=== PATIENT | male | born 1950 | race African-American/Black ===

== ENCOUNTER 2017-10-20 14:25 | Emergency (ER) | payer OTHER ==
[2017-10-20 15:19] LABS: #Basophils 0.1 thou/uL (0.0-0.2); #Eosinphils 0.7 thou/uL (0.0-0.7); #Monocytes 0.3 thou/uL (0.11-0.59); #Neutrophils 4.5 thou/uL (1.40-6.50); %Basophils 0.9 % (0.0-1.0); %Lymphocytes 26.5 % (21.0-51.0); %Monocytes 3.6 % (0.0-10.0); Hemoglobin 15.2 g/dL (14.0-18.0); Mean Platelet Volume 6.9 fL (7.4-10.4); Platelet Count 253 thou/uL (130-400); RBC Distribution Width 13.4 % (11.5-14.5); Red Blood Cell (RBC) Count 4.89 mill/uL (4.70-6.10); White Blood Cell (WBC) Count 7.5 thou/uL (4.8-10.8)
[2017-10-20 15:43] LABS: ALT (SGPT) 12 U/L (8-55); AST (SGOT) 15 U/L (5-34); Albumin 4.1 g/dL (3.4-4.8); Alkaline Phosphatase 89 U/L (40-150); Anion Gap 13 mmol/L (10-20); BUN (Urea Nitrogen) 9 mg/dL (8.4-25.7); Bilirubin, Total 0.4 mg/dL (0.2-1.2); Calc. Creatinine Clearance 0 mL/min (70-130); Calcium 9.6 mg/dL (7.8-10.44); Carbon Dioxide 31 mmol/L (23-31); Chloride 94 mmol/L (98-107); Estimated GFR-MDRD Greater than 90; Globulin 4.3 g/dL (2.4-3.5); Glucose 218 mg/dL (80-115); Potassium 3.7 mmol/L (3.5-5.1); Protein, Total 8.4 g/dL (5.8-8.1); Sodium 134 mmol/L (136-145)
--- NOTE | 2017-10-20 17:17 | CT ---
ABDOMEN CT WITHOUT CONTRAST PELVIC CT WITHOUT CONTRAST: History: Right flank pain and congestion x two days. Comparison: None. Technique: Abdomen and pelvic CT are performed without IV or oral contrast. Coronal reformatted image s are submitted for interpretation. FINDINGS: ABDOMEN CT: Lung bases are clear. Heart size is normal. No significant pericardial fluid. Descending thoracic aor ta and abdominal aorta have overall normal caliber. No periaortic fat stranding. Limited evaluation of the solid organs due to lack of IV contrast. No solid organ abnormality. Gallbladder is unremarkable. Symmetric attenuation of the psoas muscles. No gastrohepatic, retrocrural or periportal lymphadenopathy. No evidence of lymphadenopathy, free air or free fluid. Limited evaluation due to the alimentary canal due to lack of oral contrast. No bowel obstruction. Il eocecal junction is normal. Normal caliber appendix. Fecal material in a nondependent, nondilated col on. Simple cyst emanating from the right renal cortex measuring 2.4 cm. Bilaterally, no hydronephrosis or significant periaortic fat stranding. Nonobstructing calcifications in the upper pole of the right k idney. Bilateral ureters have normal caliber. No hydroureter, periureteral fat stranding or ureteroli thiasis. PELVIC CT: No mass, lymphadenopathy, free air or free fluid. Urinary bladder is unremarkable. No lytic or blastic lesions in the osseous structures. There are degenerative changes of the lumbosac ral junction. IMPRESSION: 1. Punctate nonobstructing calcifications in the right renal pelvis. POS: [facility]
[2017-10-20 17:52] LABS: Bilirubin Negative (Negative); Blood, Urine Moderate (Negative); Clarity CLEAR (Clear); Glucose, Urine (Dipstick) Negative (Negative); Leukocyte Small (Negative); Nitrite Negative (Negative); Protein, Urine (Dipstick) Negative (Neg-Trace); Specific Gravity, Urine 1.006 (1.002-1.036); pH, Urine 6.5 (5.0-9.0)
[2017-10-20 17:53] LABS: Pathc Cast-AUWi Flag 0.67 (0-2.49)
--- NOTE | 2017-10-20 17:56 | RAD ---
PORTABLE UPRIGHT FRONTAL CHEST RADIOGRAPH: Date: 10-20-17 Comparison: None. History: Right flank pain, congestion. FINDINGS: Bilateral calcified pulmonary nodules noted. Calcified mass in subcarinal region noted. Findings are consistent with prior granulomatous disease. Patient is rotated to the left. No pneumothorax, pleural fluid, focal consolidation, or alveolar edema. IMPRESSION: No focal consolidation or alveolar edema. POS: [facility]
[2017-10-20 18:29] LABS: Bacteria/HPF None Seen HPF (None Seen); Hyaline Casts/LPF NONE SEEN LPF (0-3 Hyaline); RBC/HPF 0-3 HPF (0-3); Renal Epithelial None Seen HPF (0-3); Squamous Epithelial 0-3 HPF (0-3); Transitional Epithelial NONE SEEN HPF (0-3); WBC/HPF 0-3 HPF (0-3)
== END 2017-10-20 19:02 | disposition home or self-care (01) ==
LOC: ERS 14:25
DX: M54.5 Low back pain (principal); R31.29 Other microscopic hematuria; E11.9 Type 2 diabetes mellitus without complications; E78.5 Hyperlipidemia, unspecified; I10 Essential (primary) hypertension; F20.9 Schizophrenia, unspecified; F17.210 Nicotine dependence, cigarettes, uncomplicated; Z86.73 Personal history of transient ischemic attack (TIA), and cerebral infarction without residual deficits
CPT/HCPCS: 36415; 71045; 74176; 80053; 81003; 81015; 85025; 87086; 96372; J2270

== ENCOUNTER 2018-03-06 09:29 | Outpatient (CLI) | payer MEDICARE, MEDICAID ==
[2018-03-06 10:14] LABS: Estimated GFR-MDRD - POC Greater than 90
--- NOTE | 2018-03-06 11:04 | CT ---
CT CHEST WITH IV CONTRAST: History: Cough. Infiltrate. FINDINGS: Calcified granulomata throughout each lung and calcified lymph nodes at the mediastinum are consisten t with healed granulomatous disease. At the posteromedial aspect of the superior segment right lower lobe, a subpleural noncalcified well circumscribed homogeneous nodule is 1.1 cm. There is minimal par enchymal opacity in the dependent portion right upper lobe. No lobar consolidation. Mild scarring at each lung base. No pleural fluid or pneumothorax. Calcification within the arterial structures. Degen erative changes thoracic spine. IMPRESSION: 1. Minimal parenchymal opacity dependent portion right upper lobe without lobar consolidation. This h as the appearance of a chronic process. 2. In addition to extensive calcified granulomata, there is a 1.1 cm noncalcified subpleural nodule r ight lower lobe. Please consider follow up CT in 6-9 months to evaluate for stability. 3. Atherosclerosis. POS: [facility]
== END 2018-03-06 09:30 | disposition home or self-care (01) ==
LOC: CT 09:29
PROVIDERS: ATTEND Internal Medicine
DX: R91.8 Other nonspecific abnormal finding of lung field (principal); R05 Cough; R91.1 Solitary pulmonary nodule
CPT/HCPCS: 71260; 82565

== ENCOUNTER 2018-05-11 03:14 | Emergency (ER) | payer MEDICARE, MEDICAID ==
[2018-05-11 04:01] LABS: #Eosinphils 0.1 thou/uL (0.0-0.7); #Lymphocytes 1.7 thou/uL (1.20-3.40); #Monocytes 0.4 thou/uL (0.11-0.59); #Neutrophils 7.7 thou/uL (1.40-6.50); %Basophils 0.3 % (0.0-1.0); %Eosinophils 1.4 % (0.0-10.0); %Lymphocytes 17.4 % (21.0-51.0); %Monocytes 3.8 % (0.0-10.0); %Neutrophils 77.1 % (42.0-75.0); Hemoglobin 11.5 g/dL (14.0-18.0); Mean Corpuscular HGB CONC 33.6 g/dL (32.0-36.0); Mean Corpuscular Hemoglobin 30.3 pg (27.0-31.0); Mean Corpuscular Volume 90.3 fL (78.0-98.0); Mean Platelet Volume 6.8 fL (7.4-10.4); Platelet Count 334 thou/uL (130-400); RBC Distribution Width 14.1 % (11.5-14.5)
[2018-05-11 04:19] LABS: ALT (SGPT) 101 U/L (8-55); AST (SGOT) 30 U/L (5-34); Albumin 2.9 g/dL (3.4-4.8); Alkaline Phosphatase 111 U/L (40-150); Anion Gap 15 mmol/L (10-20); BUN (Urea Nitrogen) 12 mg/dL (8.4-25.7); Bilirubin, Total 0.6 mg/dL (0.2-1.2); CK (CPK) 17 U/L (30-200); Calc. Creatinine Clearance 0 mL/min (70-130); Calcium 8.7 mg/dL (7.8-10.44); Carbon Dioxide 24 mmol/L (23-31); Chloride 99 mmol/L (98-107); Estimated GFR-MDRD Greater than 90; Globulin 4.3 g/dL (2.4-3.5); Glucose 62 mg/dL (80-115); Protein, Total 7.2 g/dL (5.8-8.1); Sodium 135 mmol/L (136-145)
[2018-05-11 04:24] LABS: Troponin I Less than 0.010 ng/mL (< 0.028)
[2018-05-11 06:35] LABS: Bilirubin Negative (Negative); Blood, Urine Negative (Negative); Clarity CLOUDY (Clear); Glucose, Urine (Dipstick) Negative (Negative); Leukocyte Small (Negative); Nitrite Negative (Negative); Protein, Urine (Dipstick) Trace mg/dL (Neg-Trace); Specific Gravity, Urine 1.016 (1.002-1.036); Urobilinogen 0.2 mg/dL (0.2-1.0)
[2018-05-11 06:38] LABS: Hyaline Casts/LPF 4-6 HYALINE CAST LPF (0-3 Hyaline); Pathc Cast-AUWi Flag 0.72 (0-2.49); Squamous Epithelial 0-3 HPF (0-3); Yeast-AUWi Flag 20.9 (0-25.0)
[2018-05-11 07:16] LABS: Bacteria/HPF Rare-Few HPF (None Seen); RBC/HPF 0-3 HPF (0-3)
[2018-05-11 07:19] LABS: Yeast-All Forms 1+ HPF (None Seen)
[2018-05-11 07:20] LABS: Crystals/HPF 1+ AMORPH URATES HPF (Negative)
--- NOTE | 2018-05-11 07:43 | RAD ---
CHEST 1 VIEW: COMPARISON: 05/07/18. HISTORY: Altered mental status. FINDINGS: Portable upright chest demonstrates the patient with leftward rotation. Normal cardiac silhouette. The pulmonary vessels and hilum are normal. Costophrenic angles are clear. No masses or consolidati on. No pneumothorax or osseous abnormalities. Stable calcified lymph node in the mediastinum. IMPRESSION: No significant interval change. POS: [facility]
[2018-05-11] MEDS ORDERED: Nitrofurantoin Monohyd/M-Cryst 100 MG CAP PO SCH (09:00)
--- NOTE | 2018-05-11 09:22 | CT ---
PRELIMINARY REPORT/[facility]/EMERGENTY AFTER-HOURS PROCEDURE CT Head Without Intravenous Contrast EXAM DATE/TIME: 05/11/2018 4:44 AM CLINICAL HISTORY: 67 years old, male; Signs and symptoms; Altered mental status/memory loss; Confusion or disorientatio n; Patient HX: 67 yo m from [facility] presents to ed with mental status changes/lethargy . Ems reports PT was woken up at his [facility] around 2 am to get vitals and the staff reported th at PT "seemed a bit off. " PT is two days post abdominal surgery and currently has a wound vac in place. PT denies abd pain, denies chest pain, denies back pain, denies any pain or complaints. TECHNIQUE: Axial computed tomography images of the head/brain without intravenous contrast. COMPARISON: No relevant prior studies available. FINDINGS: Brain: Left-sided encephalomalacia/gliosis. No brain edema. No intracranial hemorrhage. Ventricles: Normal. No ventriculomegaly. Bones/joints: Normal. No acute fracture. Sinuses: Normal as visualized. No acute sinusitis. Mastoid air cells: Normal as visualized. No mastoid effusion. Soft tissues: Normal. Other findings: Generalized volume loss. IMPRESSION: No acute brain findings. Thank you for allowing us to participate in the care of your patient. Dictated and Authenticated by: Kvng Soares MD 05/11/2018 4:53 AM Central Time ([place] & [place]) FINAL REPORT NONCONTRAST HEAD CT: Date: 05/11/18 HISTORY: Altered mental status. COMPARISON: None. FINDINGS/IMPRESSION: This report is in agreement with the preliminary report by Bib[facility]. No acute intracranial process. Burgess es in left cerebrum compatible with previous insult. There is resultant encephalomalacia and probable gliosis. There is ex vacuo dilatation of the frontal horn and body of left lateral ventricle. POS: [facility]
== END 2018-05-11 09:00 | disposition home or self-care (01) ==
LOC: ERS 03:14
DX: R41.82 Altered mental status, unspecified (principal); E11.9 Type 2 diabetes mellitus without complications; E78.5 Hyperlipidemia, unspecified; I10 Essential (primary) hypertension; Z86.73 Personal history of transient ischemic attack (TIA), and cerebral infarction without residual deficits; F20.9 Schizophrenia, unspecified
CPT/HCPCS: 36415; 51701; 70450; 71045; 80053; 81003; 81015; 82553; 84484; 85025; 87086; 93005; 94760

== ENCOUNTER 2018-05-25 06:34 | Inpatient (IN) | payer MEDICARE, MEDICAID ==
[2018-05-25 07:16] LABS: #Eosinphils 0.1 thou/uL (0.0-0.7); #Lymphocytes 1.6 thou/uL (1.20-3.40); #Monocytes 0.8 thou/uL (0.11-0.59); #Neutrophils 4.5 thou/uL (1.40-6.50); %Basophils 0.1 % (0.0-1.0); %Eosinophils 1.5 % (0.0-10.0); %Lymphocytes 22.6 % (21.0-51.0); %Monocytes 11.5 % (0.0-10.0); %Neutrophils 64.3 % (42.0-75.0); Hemoglobin 10.2 g/dL (14.0-18.0); Mean Corpuscular HGB CONC 32.2 g/dL (32.0-36.0); Mean Corpuscular Hemoglobin 28.7 pg (27.0-31.0); Mean Corpuscular Volume 89.1 fL (78.0-98.0); Mean Platelet Volume 6.6 fL (7.4-10.4); Platelet Count 326 thou/uL (130-400); RBC Distribution Width 13.4 % (11.5-14.5); Red Blood Cell (RBC) Count 3.57 mill/uL (4.70-6.10); White Blood Cell (WBC) Count 6.9 thou/uL (4.8-10.8)
[2018-05-25] MEDS ORDERED: Meropenem 1 GM in Sodium Chloride 0.9% 100 ML IVPB SCH ×2 (07:30→14:00)
[2018-05-25 07:38] LABS: ALT (SGPT) 9 U/L (8-55); AST (SGOT) 14 U/L (5-34); Albumin 2.8 g/dL (3.4-4.8); Alkaline Phosphatase 67 U/L (40-150); Anion Gap 16 mmol/L (10-20); BUN (Urea Nitrogen) 13 mg/dL (8.4-25.7); Bilirubin, Total 0.8 mg/dL (0.2-1.2); Calc. Creatinine Clearance 0 mL/min (70-130); Calcium 8.4 mg/dL (7.8-10.44); Carbon Dioxide 29 mmol/L (23-31); Chloride 92 mmol/L (98-107); Estimated GFR-MDRD Greater than 90; Globulin 4.1 g/dL (2.4-3.5); Glucose 136 mg/dL (80-115); Protein, Total 6.9 g/dL (5.8-8.1); Sodium 134 mmol/L (136-145)
[2018-05-25 07:42] LABS: Potassium 2.8 mmol/L (3.5-5.1)
[2018-05-25] MEDS ORDERED: MEROPENEM 1 GM/50 ML 1 GM in Premix Bag 1 BAG IVPB SCH (07:45)
--- NOTE | 2018-05-25 08:22 | RAD ---
AP VIEW OF THE CHEST: INDICATION: History of chest pain. COMPARISON: Prior exam dated 05/11/18. FINDINGS: Lungs are clear. Cardiomediastinal silhouette is slightly difficult to evaluate due to rotation. No definite acute osseous abnormality is evident. There is multilevel spondylosis of the thoracic spin e. There is a calcified lymph node within the mediastinum. IMPRESSION: No definite acute abnormality. Chronic changes appear similar to the prior study. POS: [facility]
[2018-05-25 10:44] LABS: Bilirubin Small (Negative); Blood, Urine Negative (Negative); Clarity CLEAR (Clear); Glucose, Urine (Dipstick) Negative (Negative); Leukocyte Negative (Negative); Nitrite Negative (Negative); Protein, Urine (Dipstick) Negative (Neg-Trace); Specific Gravity, Urine 1.034 (1.002-1.036); pH, Urine 5.5 (5.0-9.0)
--- NOTE | 2018-05-25 11:05 | CT ---
ABDOMEN AND PELVIC CT SCAN WITH IV CONTRAST: Comparison: 05-04-18 FINDINGS: There is persistent pleural and parenchymal opacity changes in the right lung base. There is resoluti on of the previously noted free intraperitoneal fluid when compared to the prior study. There is some persistent abnormally dilated small bowel loops, particularly in the upper mid abdomen anteriorly wi th some scattered air fluid levels. No oral contrast was given which significantly lowers the sensiti vity of this study in evaluating the large and small bowel. The liver and gallbladder, pancreas, sple en, and adrenal glands are unremarkable. No renal hydronephrosis. Small stable right renal cyst. Post -operative changes in the midline above the level of the umbilicus with some extraluminal gas associa dk with an anterior abdominal wall wound. The distal ileum does not appear to be dilated. There does , however, appear to be some abnormal wall thickening involving the upper rectum and rectal sigmoid p ortion of the colon which was not seen on the prior study raising concern for some type of nonspecifi c colitis. No evidence for a drainable abscess. IMPRESSION: 1. Interval development of abnormal wall thickening involving the upper rectum and rectal sigmoid por tion of the colon since prior study, evidence for nonspecific colitis. Resolution of the previously n oted free intraperitoneal fluid. Persistently abnormally dilated proximal small bowel loops with some air and fluid levels with nondilated distal small bowel. Persistent open wound in the anterior abdom en above the level of the umbilicus. Persistent pleural based parenchymal changes in the right lower lobe of the lung. No evidence for drainable abscess. Continued short term follow up. Abnormally dilat ed proximal small bowel loops with nondilated distal small bowel but showing little change from the p rior study. POS: [facility]
[2018-05-25] MEDS ORDERED: ISOVUE-370 76%-LOCM 1 ML ONE (12:21)
[2018-05-25] MEDS ORDERED: Dextrose 5% in Water 1,000 ML IV PRN (12:42)
[2018-05-25] MEDS ORDERED: Guaifenesin DM 100-10/5 ML UDCUP PO PRN (12:42)
[2018-05-25] MEDS ORDERED: Dextrose 50% Abboject 50 ML SYRINGE SLOW IVP PRN (12:42)
[2018-05-25] MEDS ORDERED: Acetaminophen 325 MG TAB PO PRN (12:42)
[2018-05-25] MEDS ORDERED: HumaLOG 300 UNITS/3 ML VIAL SC PRN ×2 (12:42)
[2018-05-25] MEDS ORDERED: Diabetic Tussin 200 MG/10 ML UDCUP PO PRN (15:00)
[2018-05-25] MEDS: Gabapentin 300 MG CAP PO SCH ×2 (15:41→20:35)
[2018-05-25] MEDS: Sodium Chloride 0.9% 1,000 ML IV SCH (15:41)
[2018-05-25] MEDS: Potassium Chloride 20 MEQ TAB PO SCH ×2 (16:14→20:37)
[2018-05-25] MEDS: Cilostazol 100 MG TAB PO SCH (18:02)
--- NOTE | 2018-05-25 19:27 | HP ---
HISTORY OF PRESENT ILLNESS: Jeremiah Mcclure is a 67-year-old black male longterm patient, previous stroke with right hemiparesis, nonambulatory, bedridden. The patient was recently hospitalized 04/02 to 05/08/2018 for what was thought to be aspiration pneumonia and an ileus. There is no clini gulshan history available and physical exam did not reveal any scars on his abdominal wall. The patient initially had a small bowel follow through during the hospitalization suggesting ileus and that the c ontrast arrived at the colon delayed fashion; however, after about 10 days of NG tube suction and fozia lure to improve, small bowel follow through was repeated and there was no progress thus he was taken to the operating room on 05/01/2018 for laparotomy, adhesiolysis after unsuccessful laparoscopy. He finally convalesced, tolerated his diet and was discharged back to the longterm. Patient present s to the emergency room without reliable history. There was noted be some food residue on his clothe s and his womack, but this is uncertain whether this was a vomitus or just him spilling food during ea ting. There is no history of last bowel movement, no history of last flatus and patient is not very well communicative. I do ask him if he does not have any abdominal pain, he says no. He cannot tell me when his last bowel movement or flatus was. The patient underwent a chest x-ray that was fairly unremarkable. CAT scan of abdomen and pelvis reveals some thickening of the rectum and left colon an d small segments of dilated small bowel of uncertain significance. There was gas throughout the colo n. His CBC is normal with a white count of 6.9, hemoglobin 10.2. Basic metabolic profile normal exc ept for potassium of 2.8, sodium 134. The patient's admitting report was that he was slightly tachycardic and hypotensive. His blood press ures reported to be in the 80s and 90s. When seen in the emergency room, his blood pressure is 104/7 0, heart rate 95-100. During his last hospitalization, the patient is noted to be a DNR. Resident at [facility] and he was not out of bed the whole time he is in the hospital. He is a complete lift. PAST MEDICAL HISTORY: Stroke with right hemiparesis, COPD, diabetes mellitus type 2, dyslipidemia, h ypertension, degenerative disk disease, recent bowel obstruction on hospitalization, recent pneumonia . PAST SURGICAL HISTORY: Recent operation three weeks ago as noted above. PAST PSYCHIATRIC HISTORY: Schizophrenia. SOCIAL HISTORY: History of tobacco abuse, history of recreational drug use. PHYSICAL EXAMINATION: VITAL SIGNS: Heart rate 94, blood pressure 105/74. HEENT: Unremarkable. LUNGS: Clear to auscultation, no wheezing. CARDIAC: Regular rate and rhythm. ABDOMEN: Soft, nondistended, nontender, midline wound granulating healthy. No signs of infection. EXTREMITIES: Unremarkable. ASSESSMENT AND PLAN: Fever workup. He is at risk of a urinary tract infection due to his urinary pr oblems. X-ray does not reveal an apparent pneumonia. He does not have a history of emesis or eating problems. Agree that he should be on full liquids and advance diet as tolerated. We will obtain ab dominal x-rays tomorrow. There is no surgical problem evident at this time. We will follow him with you.
[2018-05-25] MEDS: Docusate 100 MG CAP PO SCH (20:29)
[2018-05-25] MEDS: Famotidine 20 MG TAB PO SCH (20:35)
[2018-05-25] MEDS: Simvastatin 40 MG TAB PO SCH (20:35)
[2018-05-25] MEDS: Metoprolol Tartrate 25 MG TAB PO SCH (20:35)
[2018-05-25] MEDS ORDERED: Metoprolol Tartrate 50 MG TAB PO SCH (21:00)
--- NOTE | 2018-05-25 22:00 | HP ---
REASON FOR ADMISSION: Sepsis, colitis. HISTORY OF PRESENT ILLNESS: Patient was sent from [facility] for low blood pressure and tachycardia. He had blood pressures of 90/60 and heart rate was 140. The patient also had a temperature and was more lethargic. On arrival here, he was given a liter of bolus along with vancomycin and meropenem. He has a wound VAC to his abdomen from his recent surgery done. The patient is nonverbal with history of prior stroke and right hemiplegia. He was discharged on the 7th after having had surgery for mechanical small-bowel obstruction. PAST MEDICAL AND SURGICAL HISTORY: History of recent small-bowel obstruction with surgery for the same with peritonitis and placement of wound VAC, aspiration pneumonia, history of cerebrovascular accident with right hemiplegia , COPD, hypertension, paroxysmal atrial fibrillation, dysphagia, dyslipidemia, lumbar degenerative disk disease, osteoarthritis, schizophrenia, poor functional status. CURRENT MEDICATIONS: Gabapentin 600 mg p.o. daily, MiraLax daily, Mucinex p.r.n., cilostazol 100 mg twice daily, bupropion extended release 150 mg daily, aspirin 81 mg daily, hydrochlorothiazide 25 mg daily, Humulin 70/30 of 20 units subcu twice daily, lactulose 20 grams daily, Lopressor 75 mg twice daily, Risperdal 4 mg daily, and simvastatin 40 mg p.o. q.p.m. ALLERGIES: LISINOPRIL, METFORMIN, and TRIAMCINOLONE. PERSONAL HISTORY: Does not abuse alcohol or drugs. He is currently a resident of [facility]. He was a prior smoker per prior records. FAMILY HISTORY: There is history of heart disease in mom per prior records. CODE STATUS: The patient is DNR. I have confirmed this with his sister and power of station manager, Ms. Worley. The number to reach her is [phone]. REVIEW OF SYSTEM: Cannot be obtained as patient is nonverbal. PHYSICAL EXAMINATION: GENERAL: The patient is a 67-year-old male, who is currently not in any acute distress. VITAL SIGNS: Blood pressure on arrival was 96/60, currently 110/64, pulse 100 per minute, respiratory rate is 18 per minute, temperature 99.3 degrees Fahrenheit, saturating 92% on room air. NECK: Supple, no elevated JVD. HEENT: Eyes: Extraocular muscles intact. Pupils reacting to light. Oral cavity mucous membranes are dry. No exudates or congestion. CARDIOVASCULAR: S1 and S2 heard. Regular rhythm. RESPIRATORY: Air entry 1+ bilateral. Scattered rhonchi plus. ABDOMEN: Soft, bowel sounds heard. There are 2 wounds with wound VAC with history of recent surgery for bowel obstruction, also has abdominal wall edema. EXTREMITIES: There is no peripheral edema or calf tenderness. VASCULAR: Peripheral pulses 1+ bilateral, no ischemic ulcerations or gangrene. CENTRAL NERVOUS SYSTEM: The patient has chronic right hemiplegia with aphasia and dysphagia. No new focal deficits noted. PSYCHIATRIC: Cannot be assessed as patient is currently nonverbal. No obvious hallucinations or delusions were noted. LABORATORY AND X-RAY FINDINGS: White count of 6.9, H&H 10 and 31, platelet count 326, MCV is 89 with 64% neutrophils. Potassium 2.8, serum bicarbonate 29 , BUN 13, creatinine 0.7, glucose 136. Lactic acid 0.8. Liver enzymes within normal limits. Albumin is 2.8. Chest x-ray done shows no acute abnormalities. CT of the abdomen and pelvis with IV contrast done shows abnormal wall thickening involving upper rectum and rectosigmoid portion of the colon since prior study, evidence for nonspecific colitis is seen. There is a resolution of the previous free intraperitoneal fluid at present. There is also persistently abnormally dilated proximal small bowel loops with some air fluid levels with nondilated distal small ball persistent open wound in the anterior abdomen above the level of the umbilicus. No evidence for drainable abscess seen. EKG done shows sinus tachycardia at 106 beats per minute. There is poor R-wave progression. There is also ST depression seen in lead II, III, and aVF. There is questionable Q-waves seen in V1 and V2. CLINICAL IMPRESSION AND PLAN: The patient will be admitted to medical floor for possible colitis. He has had recent abdominal surgery for small-bowel obstruction and still has a wound VAC x2 to the abdominal wounds. I have discussed his current findings with Dr. Melissa, who is here in the emergency room. We will keep him on full liquid diet. We will also obtain stool studies including Clostridium difficile. He will be on meropenem for now. We will continue Zocor, Risperdal, lactulose, DuoNebs, hydrochlorothiazide, Neurontin, Pletal, Wellbutrin, and aspirin as before. Metoprolol dose will be reduced to 25 mg in view of initial hypotension that the patient came in with. I will likely hold his hydrochlorothiazide as well. Patient's overall prognosis is poor to guarded at present. His functional status is very poor. Have given complete updates to patient's sister, Ms. Worley over the phone. We will involve Wound Care as well for the wounds on the abdominal wall. CARINA
[2018-05-25] MEDS: MEROPENEM 1 GM/50 ML 1 GM in Premix Bag 1 BAG IVPB SCH (22:46)
[2018-05-26] MEDS: Sodium Chloride 0.9% 1,000 ML IV SCH ×3 (04:59→21:21)
[2018-05-26] MEDS: Potassium Chloride 20 MEQ TAB PO SCH ×6 (05:00→22:53)
[2018-05-26 05:02] LABS: #Eosinphils 0.1 thou/uL (0.0-0.7); #Monocytes 0.6 thou/uL (0.11-0.59); #Neutrophils 3.4 thou/uL (1.40-6.50); %Basophils 0.3 % (0.0-1.0); %Eosinophils 2.5 % (0.0-10.0); %Lymphocytes 20.2 % (21.0-51.0); %Monocytes 10.8 % (0.0-10.0); %Neutrophils 66.3 % (42.0-75.0); Hemoglobin 10.4 g/dL (14.0-18.0); Mean Corpuscular HGB CONC 30.9 g/dL (32.0-36.0); Mean Corpuscular Hemoglobin 27.6 pg (27.0-31.0); Mean Corpuscular Volume 89.3 fL (78.0-98.0); Mean Platelet Volume 6.2 fL (7.4-10.4); Platelet Count 305 thou/uL (130-400); RBC Distribution Width 13.5 % (11.5-14.5); Red Blood Cell (RBC) Count 3.77 mill/uL (4.70-6.10); White Blood Cell (WBC) Count 5.1 thou/uL (4.8-10.8)
[2018-05-26 05:14] LABS: Anion Gap 12 mmol/L (10-20); BUN (Urea Nitrogen) 8 mg/dL (8.4-25.7); Calc. Creatinine Clearance 134 mL/min (70-130); Calcium 8.7 mg/dL (7.8-10.44); Carbon Dioxide 31 mmol/L (23-31); Chloride 97 mmol/L (98-107); Estimated GFR-MDRD Greater than 90; Glucose 125 mg/dL (80-115); Sodium 137 mmol/L (136-145)
[2018-05-26 05:17] LABS: Potassium 2.6 mmol/L (3.5-5.1)
[2018-05-26] MEDS: MEROPENEM 1 GM/50 ML 1 GM in Premix Bag 1 BAG IVPB SCH (06:33)
[2018-05-26] MEDS ORDERED: Famotidine 20 MG TAB PO SCH (09:00)
[2018-05-26] MEDS ORDERED: Hydrochlorothiazide 25 MG TAB PO SCH (09:00)
[2018-05-26] MEDS: Cilostazol 100 MG TAB PO SCH ×2 (10:27→16:04)
[2018-05-26] MEDS: Gabapentin 300 MG CAP PO SCH ×4 (10:28→22:56)
[2018-05-26] MEDS: risperiDONE 1 MG TAB PO SCH (10:28)
[2018-05-26] MEDS: Famotidine 20 MG TAB PO SCH ×3 (10:28→22:56)
[2018-05-26] MEDS: Bupropion 150 MG XL TAB PO SCH (10:29)
[2018-05-26] MEDS: Docusate 100 MG CAP PO SCH ×2 (10:29→21:11)
[2018-05-26] MEDS: Senokot S 8.6-50 MG TAB PO SCH (10:30)
[2018-05-26] MEDS: Vancomycin HCl 25 MG/ML Oral PO SCH ×5 (10:35→22:57)
--- NOTE | 2018-05-26 10:36 | RAD ---
CHEST ONE VIEW: ABDOMEN TWO VIEWS: HISTORY: A 67-year-old male with follow-up possible sepsis, congestion, fever, and tachycardia. COMPARISON: Abdomen and pelvis CT scan from 05/25/2018. FINDINGS: CHEST: There is considerable rotation of the chest to the right with old granulomatous disease and m inimal chronic linear and interstitial changes, as well as atherosclerosis of the aorta. No evidence for free intraperitoneal air. ABDOMEN: There is some scattered gas and fecal material in the colon, as well as some scattered gas in a minimally dilated small bowel. No overt calculus. IMPRESSION: 1. Some gas and fecal material in the colon and some gas in minimally dilated small bowel, showing l ittle change, possibly slightly less gas-filled small bowel loops than when compared to the prior CT. 2. No significant acute intrathoracic disease. 3. No significant new process. POS: [facility]
[2018-05-26] MEDS: Enoxaparin Sodium 40 MG/0.4 ML SYRINGE SC SCH (10:57)
--- NOTE | 2018-05-26 12:15 | PDOC.PN ---
- Subjective Encounter Start Date: 05/26/18 Encounter Start Time: 12:00 Subjective: no complaints -: not in distress - Objective Resuscitation Status: Resuscitation Status DNR:Do Not Resuscitate MAR Reviewed: Yes Vital Signs & Weight: Vital Signs (12 hours) Temp Pulse Resp BP Pulse Ox 05/26/18 08:57 98.2 F 92 20 105/66 98 05/26/18 08:00 98 05/26/18 07:35 96 05/26/18 07:33 83 16 96 05/26/18 04:36 97.5 F L 83 16 110/66 97 05/26/18 00:26 98.2 F 87 16 120/75 95 Weight Weight 180 lb 0.119 oz I&O: 05/25/18 05/26/18 05/27/18 06:59 06:59 06:59 Intake Total 420 1040 Balance 420 1040 Result Diagrams: 05/26/18 04:08 05/26/18 04:08 Additional Labs: Accuchecks 05/26/18 05/25/18 05/25/18 04:40 20:07 16:57 POC Glucose 126 H 160 H 150 H Phys Exam - Physical Examination HEENT: PERRLA, sclera anicteric Neck: no JVD, supple Respiratory: no wheezing, no rales Cardiovascular: RRR, no significant murmur Gastrointestinal: soft, no distention, positive bowel sounds Musculoskeletal: no edema, pulses present right hemiplegia, aphasia, dysphagia Dx/Plan (1) Sepsis Code(s): A41.9 - SEPSIS, UNSPECIFIED ORGANISM Status: Acute Qualifiers: Sepsis type: sepsis due to unspecified organism Qualified Code(s): A41.9 - Sepsis, unspecified organism (2) C. difficile colitis Status: Acute (3) DM type 2 (diabetes mellitus, type 2) Status: Chronic Qualifiers: Diabetes mellitus corporate human resources manager insulin use: with corporate human resources manager use Diabetes mellitus complication status: with unspecified complications Qualified Code(s) : E11.8 - Type 2 diabetes mellitus with unspecified complications; Z79.4 - gift officer (current) use of insulin (4) Schizoaffective disorder Code(s): F25.9 - SCHIZOAFFECTIVE DISORDER, UNSPECIFIED Status: Chronic Qualifiers: Schizoaffective disorder type: unspecified Qualified Code(s): F25.9 - Schizoaffective disorder, unspecified (5) COPD (chronic obstructive pulmonary disease) Status: Chronic Qualifiers: COPD type: unspecified COPD Qualified Code(s): J44.9 - Chronic obstructive pulmonary disease, unspecified Comment: Stable. (6) HTN (hypertension) Code(s): I10 - ESSENTIAL (PRIMARY) HYPERTENSION Status: Chronic Qualifiers: Hypertension type: essential hypertension Qualified Code(s): I10 - Essential (primary) hypertension (7) History of CVA (cerebrovascular accident) Code(s): Z86.73 - PRSNL HX OF TIA (TIA), AND CEREB INFRC W/O RESID DEFICITS Status: Chronic Comment: with right hemiplegia, aphasia and dysphagia - Plan start vanc po for cdiff colitis -: dc meropenem -: continue aspirin, pletal, lopressor -: gentle iv hydration -: replace potassium * . Review of Systems - Medications/Allergies Allergies/Adverse Reactions: Allergies Allergy/AdvReac Type Severity Reaction Status Date / Time lisinopril Allergy Verified 04/22/18 10:12 metformin Allergy Verified 04/22/18 10:12 triamcinolone [From Kenalog] Allergy Verified 04/22/18 10:12 Medications: Current Medications Acetaminophen (Tylenol) 650 mg PO Q4H PRN PRN Reason: Headache/Fever or Pain Albuterol/Ipratropium (Duoneb) 3 ml NEB [id number] [facility] Last Admin: 05/26/18 07:33 Dose: 3 ml Aspirin (Aspirin Chewable) 81 mg PO DAILY [facility] Last Admin: 05/26/18 10:28 Dose: 81 mg Bupropion HCl (Wellbutrin Xl) 150 mg PO DAILY [facility] Last Admin: 05/26/18 10:29 Dose: 150 mg Cilostazol (Pletal) 100 mg PO BID-AC [facility] Last Admin: 05/26/18 10:27 Dose: 100 mg Dextrose/Water (Dextrose 50%) 25 gm SLOW IVP PRN PRN PRN Reason: Hypoglycemia Docusate Sodium (Colace) 100 mg PO BID [facility] Last Admin: 05/26/18 10:29 Dose: Not Given Enoxaparin Sodium (Lovenox) 40 mg SC 0900 [facility] Last Admin: 05/26/18 10:57 Dose: 40 mg Famotidine (Pepcid) 20 mg PO BID [facility] Last Admin: 05/26/18 10:28 Dose: 20 mg Gabapentin (Neurontin) 600 mg PO TID [facility] Last Admin: 05/26/18 10:28 Dose: 600 mg Glucagon (Glucagon) 1 mg IM PRN PRN PRN Reason: Hypoglycemia Guaifenesin (Robitussin Sf) 400 mg PO TID PRN PRN Reason: Cough Guaifenesin/Dextromethorphan (Robitussin Dm) 15 ml PO Q4H PRN PRN Reason: Cough Dextrose/Water (D5w) 1,000 mls @ 0 mls/hr IV .Q0M PRN PRN Reason: Hypoglycemia Sodium Chloride (Normal Saline 0.9%) 1,000 mls @ 70 mls/hr IV .[id number] [facility] Last Admin: 05/26/18 04:59 Dose: 1,000 mls Insulin Human Lispro (Humalog) 0 units SC .MODERATE SLIDING SC PRN PRN Reason: Moderate Correctional Scale Insulin Human Lispro (Humalog) 0 units SC .BEDTIME SLIDING SC PRN PRN Reason: Bedtime Correctional Scale Lactulose (Lactulose) 20 gm PO DAILY [facility] Last Admin: 05/26/18 10:29 Dose: Not Given Metoprolol Tartrate (Lopressor) 25 mg PO BID [facility] Last Admin: 05/25/18 20:35 Dose: 25 mg Potassium Chloride (K-Dur) 40 meq PO Q6H [facility] Stop: 05/28/18 03:01 Last Admin: 05/26/18 10:27 Dose: 40 meq Risperidone (Risperidone) 4 mg PO DAILY [facility] Last Admin: 05/26/18 10:28 Dose: 4 mg Senna/Docusate Sodium (Senokot S) 2 tab PO DAILY [facility] Last Admin: 05/26/18 10:30 Dose: Not Given Simvastatin (Zocor) 40 mg PO QPM [facility] Last Admin: 05/25/18 20:35 Dose: 40 mg Sodium Chloride (Flush - Normal Saline) 10 ml IVF Q12HR [facility] Last Admin: 05/26/18 10:35 Dose: Not Given Sodium Chloride (Flush - Normal Saline) 10 ml IVF PRN PRN PRN Reason: Saline Flush Vancomycin HCl (First Vancomycin) 125 mg PO QID [facility] Last Admin: 05/26/18 10:35 Dose: 125 mg
[2018-05-26] MEDS: Metoprolol Tartrate 25 MG TAB PO SCH ×2 (13:47→21:19)
--- NOTE | 2018-05-26 14:01 | PRG ---
DATE OF SERVICE: 05/26/2018 HISTORY OF PRESENT ILLNESS: Jeremiah Mcclure is doing fairly well today. Stool studies revealed Clostr idium difficile colitis. His abdominal wound is granulating healthy. Wound VAC has been used in the [facility]. Would continue wound VAC treatment here. The patient was discharged home on mechanical engineer al soft diet; however, in the [facility] he was taking pureed. Speech therapy evaluated him last h ospitalization and recommended the diet he was discharged home with, but somehow in the [facility] this was changed. The patient has been re-evaluated by Speech Therapy. His diet has been adjusted. He is tolerating his diet. He denies any abdominal pain. During the patient's last hospitalization he did not get out of bed. Nurses would not get him out of bed because he is a total lift. He is n onambulatory. At this point, the patient is doing well from surgical standpoint. Would continue wo und care with a wound VAC and follow up in my office in 2-3 weeks. I will see him as needed this hos pitalization. He is on Vancocin p.o. for his C. difficile colitis and hypokalemia is being replaced with potassium repletion.
[2018-05-26] MEDS: Simvastatin 40 MG TAB PO SCH (21:19)
[2018-05-26] MEDS ORDERED: Potassium Chloride 40 MEQ in Sodium Chloride 0.9% 250 ML 250 ML IVPB SCH (23:59)
[2018-05-27] MEDS: Potassium Chloride 20 MEQ TAB PO SCH (02:50)
[2018-05-27 05:54] LABS: #Eosinphils 0.1 thou/uL (0.0-0.7); #Lymphocytes 1.3 thou/uL (1.20-3.40); #Monocytes 0.6 thou/uL (0.11-0.59); #Neutrophils 2.9 thou/uL (1.40-6.50); %Basophils 0.5 % (0.0-1.0); %Eosinophils 1.9 % (0.0-10.0); %Lymphocytes 26.9 % (21.0-51.0); %Monocytes 12.2 % (0.0-10.0); %Neutrophils 58.4 % (42.0-75.0); Hemoglobin 9.8 g/dL (14.0-18.0); Mean Corpuscular HGB CONC 31.7 g/dL (32.0-36.0); Mean Corpuscular Hemoglobin 28.8 pg (27.0-31.0); Mean Corpuscular Volume 90.8 fL (78.0-98.0); Mean Platelet Volume 6.3 fL (7.4-10.4); Platelet Count 299 thou/uL (130-400); RBC Distribution Width 13.2 % (11.5-14.5); Red Blood Cell (RBC) Count 3.41 mill/uL (4.70-6.10); White Blood Cell (WBC) Count 4.9 thou/uL (4.8-10.8)
[2018-05-27 06:15] LABS: Anion Gap 13 mmol/L (10-20); BUN (Urea Nitrogen) 6 mg/dL (8.4-25.7); Calc. Creatinine Clearance 136 mL/min (70-130); Calcium 8.4 mg/dL (7.8-10.44); Carbon Dioxide 28 mmol/L (23-31); Chloride 103 mmol/L (98-107); Estimated GFR-MDRD Greater than 90; Glucose 109 mg/dL (80-115); Potassium 3.8 mmol/L (3.5-5.1); Sodium 140 mmol/L (136-145)
[2018-05-27] MEDS: Cilostazol 100 MG TAB PO SCH ×2 (09:02→17:27)
[2018-05-27] MEDS: Metoprolol Tartrate 25 MG TAB PO SCH ×2 (09:02→21:52)
[2018-05-27] MEDS: Bupropion 150 MG XL TAB PO SCH (09:02)
[2018-05-27] MEDS: Gabapentin 300 MG CAP PO SCH ×3 (09:02→21:53)
[2018-05-27] MEDS: Famotidine 20 MG TAB PO SCH ×2 (09:02→21:53)
[2018-05-27] MEDS: Docusate 100 MG CAP PO SCH ×3 (09:03→21:52)
[2018-05-27] MEDS: Vancomycin HCl 25 MG/ML Oral PO SCH ×4 (09:03→21:54)
[2018-05-27] MEDS: risperiDONE 1 MG TAB PO SCH (09:03)
[2018-05-27] MEDS: Senokot S 8.6-50 MG TAB PO SCH (09:04)
[2018-05-27] MEDS: Enoxaparin Sodium 40 MG/0.4 ML SYRINGE SC SCH (09:12)
--- NOTE | 2018-05-27 10:42 | PDOC.PN ---
- Subjective Encounter Start Date: 05/27/18 Encounter Start Time: 10:15 Subjective: is more awake and alert this am -: wanting to eat earlier saying his lips are dry - Objective Resuscitation Status: Resuscitation Status DNR:Do Not Resuscitate MAR Reviewed: Yes Vital Signs & Weight: Vital Signs (12 hours) Temp Pulse Resp BP Pulse Ox 05/27/18 08:59 98.0 F 101 H 16 108/65 93 L 05/27/18 08:00 93 L 05/27/18 07:00 97 05/27/18 06:58 97 18 97 05/27/18 04:00 97.9 F 96 18 143/71 H 98 05/27/18 00:13 101 H 18 97 05/27/18 00:00 98 F 98 18 110/65 99 Weight Admit Weight 180 lb 0.119 oz Weight 180 lb 0.119 oz I&O: 05/26/18 05/27/18 05/28/18 06:59 06:59 06:59 Intake Total 420 3180 Output Total 1 Balance 420 3179 Result Diagrams: 05/27/18 04:53 05/27/18 04:53 Additional Labs: Accuchecks 05/27/18 05/26/18 05/26/18 05:44 20:45 16:44 POC Glucose 109 192 H 136 H 05/26/18 11:52 POC Glucose 157 H Phys Exam - Physical Examination HEENT: PERRLA, sclera anicteric Neck: no JVD, supple Respiratory: no wheezing, no rales Cardiovascular: RRR, no significant murmur Gastrointestinal: soft, no distention, positive bowel sounds Musculoskeletal: pulses present chronic right hemiplegia, aphasia Dx/Plan (1) Sepsis Code(s): A41.9 - SEPSIS, UNSPECIFIED ORGANISM Status: Acute Qualifiers: Sepsis type: sepsis due to unspecified organism Qualified Code(s): A41.9 - Sepsis, unspecified organism Comment: resolving, sec to c.diff colitis (2) C. difficile colitis Status: Acute (3) DM type 2 (diabetes mellitus, type 2) Status: Chronic Qualifiers: Diabetes mellitus intermediate designer insulin use: with correction use Diabetes mellitus complication status: with unspecified complications Qualified Code(s) : E11.8 - Type 2 diabetes mellitus with unspecified complications; Z79.4 - skilled nursing (current) use of insulin (4) Schizoaffective disorder Code(s): F25.9 - SCHIZOAFFECTIVE DISORDER, UNSPECIFIED Status: Chronic Qualifiers: Schizoaffective disorder type: unspecified Qualified Code(s): F25.9 - Schizoaffective disorder, unspecified (5) COPD (chronic obstructive pulmonary disease) Status: Chronic Qualifiers: COPD type: unspecified COPD Qualified Code(s): J44.9 - Chronic obstructive pulmonary disease, unspecified Comment: Stable. (6) HTN (hypertension) Code(s): I10 - ESSENTIAL (PRIMARY) HYPERTENSION Status: Chronic Qualifiers: Hypertension type: essential hypertension Qualified Code(s): I10 - Essential (primary) hypertension (7) History of CVA (cerebrovascular accident) Code(s): Z86.73 - PRSNL HX OF TIA (TIA), AND CEREB INFRC W/O RESID DEFICITS Status: Chronic Comment: with right hemiplegia, aphasia and dysphagia - Plan is on vanc po qid -: off meropenem -: cognitively better this am -: potassium levels are stable this am -: dc iv fluids, encourage oral intake * . Review of Systems - Medications/Allergies Allergies/Adverse Reactions: Allergies Allergy/AdvReac Type Severity Reaction Status Date / Time lisinopril Allergy Verified 04/22/18 10:12 metformin Allergy Verified 04/22/18 10:12 triamcinolone [From Kenalog] Allergy Verified 04/22/18 10:12 Medications: Current Medications Acetaminophen (Tylenol) 650 mg PO Q4H PRN PRN Reason: Headache/Fever or Pain Albuterol/Ipratropium (Duoneb) 3 ml NEB [id number] [facility] Last Admin: 05/27/18 06:58 Dose: 3 ml Aspirin (Aspirin Chewable) 81 mg PO DAILY [facility] Last Admin: 05/27/18 09:02 Dose: 81 mg Bupropion HCl (Wellbutrin Xl) 150 mg PO DAILY [facility] Last Admin: 05/27/18 09:02 Dose: 150 mg Cilostazol (Pletal) 100 mg PO BID-AC [facility] Last Admin: 05/27/18 09:02 Dose: 100 mg Dextrose/Water (Dextrose 50%) 25 gm SLOW IVP PRN PRN PRN Reason: Hypoglycemia Docusate Sodium (Colace) 100 mg PO BID [facility] Last Admin: 05/27/18 09:03 Dose: Not Given Enoxaparin Sodium (Lovenox) 40 mg SC 0900 [facility] Last Admin: 05/27/18 09:12 Dose: Not Given Famotidine (Pepcid) 20 mg PO BID [facility] Last Admin: 05/27/18 09:02 Dose: 20 mg Gabapentin (Neurontin) 600 mg PO TID [facility] Last Admin: 05/27/18 09:02 Dose: 600 mg Glucagon (Glucagon) 1 mg IM PRN PRN PRN Reason: Hypoglycemia Guaifenesin (Robitussin Sf) 400 mg PO TID PRN PRN Reason: Cough Guaifenesin/Dextromethorphan (Robitussin Dm) 15 ml PO Q4H PRN PRN Reason: Cough Dextrose/Water (D5w) 1,000 mls @ 0 mls/hr IV .Q0M PRN PRN Reason: Hypoglycemia Insulin Human Lispro (Humalog) 0 units SC .MODERATE SLIDING SC PRN PRN Reason: Moderate Correctional Scale Insulin Human Lispro (Humalog) 0 units SC .BEDTIME SLIDING SC PRN PRN Reason: Bedtime Correctional Scale Lactulose (Lactulose) 20 gm PO DAILY [facility] Last Admin: 05/27/18 09:03 Dose: Not Given Metoprolol Tartrate (Lopressor) 25 mg PO BID [facility] Last Admin: 05/27/18 09:02 Dose: 25 mg Risperidone (Risperidone) 4 mg PO DAILY [facility] Last Admin: 05/27/18 09:03 Dose: 4 mg Senna/Docusate Sodium (Senokot S) 2 tab PO DAILY [facility] Last Admin: 05/27/18 09:04 Dose: Not Given Simvastatin (Zocor) 40 mg PO QPM [facility] Last Admin: 05/26/18 21:19 Dose: 40 mg Sodium Chloride (Flush - Normal Saline) 10 ml IVF Q12HR [facility] Last Admin: 05/27/18 09:04 Dose: Not Given Sodium Chloride (Flush - Normal Saline) 10 ml IVF PRN PRN PRN Reason: Saline Flush Vancomycin HCl (First Vancomycin) 125 mg PO QID [facility] Last Admin: 05/27/18 09:03 Dose: 125 mg
[2018-05-27] MEDS: Sodium Chloride 0.9% 1,000 ML IV SCH (19:02)
[2018-05-27] MEDS: Simvastatin 40 MG TAB PO SCH (21:53)
[2018-05-28 05:22] LABS: Anion Gap 8 mmol/L (10-20); BUN (Urea Nitrogen) 6 mg/dL (8.4-25.7); Calc. Creatinine Clearance 138 mL/min (70-130); Calcium 8.5 mg/dL (7.8-10.44); Carbon Dioxide 33 mmol/L (23-31); Chloride 103 mmol/L (98-107); Estimated GFR-MDRD Greater than 90; Glucose 125 mg/dL (80-115); Potassium 3.2 mmol/L (3.5-5.1); Sodium 141 mmol/L (136-145)
[2018-05-28] MEDS: Docusate 100 MG CAP PO SCH (08:33)
[2018-05-28] MEDS: Cilostazol 100 MG TAB PO SCH (08:33)
[2018-05-28] MEDS: Famotidine 20 MG TAB PO SCH (08:34)
[2018-05-28] MEDS: Metoprolol Tartrate 25 MG TAB PO SCH (08:34)
[2018-05-28] MEDS: Senokot S 8.6-50 MG TAB PO SCH (08:34)
[2018-05-28] MEDS: Gabapentin 300 MG CAP PO SCH ×2 (08:34→14:17)
[2018-05-28] MEDS: Enoxaparin Sodium 40 MG/0.4 ML SYRINGE SC SCH (08:35)
[2018-05-28] MEDS: Vancomycin HCl 25 MG/ML Oral PO SCH ×2 (10:16→12:15)
[2018-05-28] MEDS: risperiDONE 1 MG TAB PO SCH (10:16)
[2018-05-28] MEDS: Bupropion 150 MG XL TAB PO SCH (10:17)
[2018-05-28] MEDS ORDERED: Potassium Chloride 20 MEQ TAB PO SCH (10:30)
--- NOTE | 2018-05-28 13:46 | PDOC.PN ---
- Subjective Encounter Start Date: 05/28/18 Encounter Start Time: 09:40 Subjective: awake, not in distress -: is eating well per staff -: no nausea or abd pain - Objective Resuscitation Status: Resuscitation Status DNR:Do Not Resuscitate MAR Reviewed: Yes Vital Signs & Weight: Vital Signs (12 hours) Temp Pulse Resp BP Pulse Ox 05/28/18 08:33 93 L 05/28/18 08:06 98.1 F 92 16 112/67 93 L 05/28/18 06:22 96 05/28/18 06:17 92 18 96 05/28/18 03:50 98.3 F 73 18 147/70 H 95 Weight Admit Weight 180 lb 0.119 oz Weight 180 lb 0.119 oz I&O: 05/27/18 05/28/18 05/29/18 06:59 06:59 06:59 Intake Total 3180 1288 Output Total 1 1 Balance 3179 1287 Result Diagrams: 05/27/18 04:53 05/28/18 04:33 Additional Labs: Accuchecks 05/28/18 05/28/18 05/27/18 11:24 05:30 19:54 POC Glucose 240 H 110 178 H 05/27/18 17:07 POC Glucose 128 H Phys Exam - Physical Examination HEENT: PERRLA, moist MMs Neck: no JVD, supple Respiratory: no wheezing, no rales Cardiovascular: RRR, no significant murmur Gastrointestinal: soft, non-tender, positive bowel sounds vac+ Musculoskeletal: no edema, pulses present chronic right hemiplegia, aphasia Psychiatric: A&O x 3 Dx/Plan (1) Sepsis Code(s): A41.9 - SEPSIS, UNSPECIFIED ORGANISM Status: Resolved Qualifiers: Sepsis type: sepsis due to unspecified organism Qualified Code(s): A41.9 - Sepsis, unspecified organism Comment: resolving, sec to c.diff colitis (2) C. difficile colitis Status: Acute (3) DM type 2 (diabetes mellitus, type 2) Status: Chronic Qualifiers: Diabetes mellitus computer terminal operator insulin use: with correction use Diabetes mellitus complication status: with unspecified complications Qualified Code(s) : E11.8 - Type 2 diabetes mellitus with unspecified complications; Z79.4 - intermediate teacher (current) use of insulin (4) Schizoaffective disorder Code(s): F25.9 - SCHIZOAFFECTIVE DISORDER, UNSPECIFIED Status: Chronic Qualifiers: Schizoaffective disorder type: unspecified Qualified Code(s): F25.9 - Schizoaffective disorder, unspecified (5) COPD (chronic obstructive pulmonary disease) Status: Chronic Qualifiers: COPD type: unspecified COPD Qualified Code(s): J44.9 - Chronic obstructive pulmonary disease, unspecified Comment: Stable. (6) HTN (hypertension) Code(s): I10 - ESSENTIAL (PRIMARY) HYPERTENSION Status: Chronic Qualifiers: Hypertension type: essential hypertension Qualified Code(s): I10 - Essential (primary) hypertension (7) History of CVA (cerebrovascular accident) Code(s): Z86.73 - PRSNL HX OF TIA (TIA), AND CEREB INFRC W/O RESID DEFICITS Status: Chronic Comment: with right hemiplegia, aphasia and dysphagia - Plan has been having 1 or 2 stools last 36hrs per nursing documentation -: continue vanc po x 10 days -: may dc to snf if he can go today -: replace k, needs bmp q3days to check electrolytes -: wound vac per 's adv * .
--- NOTE | 2018-05-28 13:53 | PQF ---
ALDO YEAGER, KARMEN NAGEL MD [id number] CLINICAL DOCUMENTATION IMPROVEMENT CLARIFICATION FORM: ICD-10 Updated PLEASE DO AN ADDENDUM TO THE PROGRESS NOTE WITH ANY DOCUMENTATION UPDATES OR ADDITIONS AND CARRY THROUGH TO DC SUMMARY. THANK YOU. DATE: 05-28-18 ATTN: DR. FABIAN Please exercise your independent, professional judgment in responding to the clarification form. Clinical indicators are provided on the bottom of this form for your review Please check appropriate box(s): [ x ] I (concur) with the Wound Care findings as stated below. [ ] No pressure ulcer diagnosis [ ] Other diagnosis [ ] Unable to determine In addition, please specify: Present on Admission (POA): [ x ] Yes [ ] No [ ] Unable to determine For continuity of documentation, please document condition throughout progress notes and discharge summary. Thank You. CLINICAL INDICATORS - SIGNS / SYMPTOMS / LABS 05-25 WOUND CARE ASSESSMENT: HEALING STAGE 2 PU TO LEFT BUTTOCK RISK FACTORS: H&P ([place]): PREVIOUS STROKE W/ RIGHT HEMIPARESIS - NONABMULATORY, BEDRIDDEN TREATMENTS: CPOE 9- WOUND CARE ASSESSMENT NURSING: TURN Q2H - TOTAL ASSISTANCE THANK YOU, LEAH (This form is maintained as a part of the permanent medical record) 2014 [employer]. All Rights Reserved Leah Farley RN, BS [email or web address] Cell [facility]
--- NOTE | 2018-05-28 14:05 | PQF ---
ALDO YEAGER, KARMEN NAGEL MD [id number] CLINICAL DOCUMENTATION IMPROVEMENT CLARIFICATION FORM: ICD-10 Updated PLEASE DO AN ADDENDUM TO THE PROGRESS NOTE WITH ANY DOCUMENTATION UPDATES OR ADDITIONS AND CARRY THROUGH TO DC SUMMARY. THANK YOU. DATE: 05-28-18 ATTN: DR. FABIAN Please exercise your independent, professional judgment in responding to the clarification form. Clinical indicators are provided on the bottom of this form for your review Please check appropriate box(s): [ ] Right Hemiplegia w/ Functional Quadriplegia due to previous stroke [ x ] Right Hemiplegia [ ] Other diagnosis [ ] Unable to determine CLINICAL INDICATORS - SIGNS / SYMPTOMS / LABS 05-25 NURSING ASSESSMENT: TOTAL ASSISTANCE 05-25 WOUND CARE ASSESSMENT: HEALING STAGE 2 PU NOTED TO LEFT BUTTOCK 05-25 ([place]): STROKE W/ RIGHT HEMIPARESIS 05-25 ([place]): [place] RESIDENT ; NONVERBAL; 05-26 ([place]): RIGHT HEMIPLEGIA, APHASIA, AND DYSPHAGIA 05-26 ([place]): TOTAL LIFT - NONAMBULATORY RISK FACTORS 05-25 ([place]): STROKE W/ RIGHT HEMIPARESIS 05-26 ([place]): TOTAL LIFT - NONAMBULATORY TREATMENT: 05-25 NURSING ASSESSMENT: TOTAL ASSISTANCE - ASSIST W/ FEEDING 05-25 FOOD AND NUTRITION SERVICES STATISTICS - TOTAL ASSISTANCE W/ FEEDING THANK YOU, LEAH (This form is maintained as a part of the permanent medical record) 2014 [employer]. All Rights Reserved Leah Farley RN, BS [email or web address] Cell [facility]
[2018-05-28 14:42] VITALS: BP 100/64; TEMP 97.9
--- NOTE | 2018-05-29 00:14 | DIS ---
DATE OF ADMISSION: 05/25/2018 DATE OF DISCHARGE: 05/28/2018 DISCHARGE DISPOSITION: To [facility]. PRIMARY DISCHARGE DIAGNOSES: Sepsis, Clostridium difficile colitis. 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 PROCEDURES DONE DURING HOSPITALIZATION: Abdominal and pelvic CAT scan done showed abdominal wall thi ckening involving upper rectum and rectosigmoid portion of the colon suspicious for colitis. There a re other nonspecific findings on the CT scan as well. Chest x-ray done showed no acute cardiopulmona ry abnormality. Stool for C. diff was positive. Stool for Campylobacter and Shiga toxins were negat elina. Blood cultures x2, no growth. Urine culture, no growth. H&H 10 and 31, platelet count 299. A lbumin is 2.8. DISCHARGE MEDICATIONS: Vancomycin 125 mg p.o. 4 times daily for 10 days, K-Dur 40 mEq p.o. daily for another 6 days for hypokalemia likely from diarrhea, Zocor 40 mg p.o. q.p.m., Risperdal 4 mg p.o. da itzel, metoprolol 75 mg p.o. twice daily, 70/30 Humulin 20 units subcu twice daily, gabapentin 600 mg p .o. 3 times daily, Pepcid 20 mg daily, cilostazol 100 mg p.o. twice daily, Wellbutrin XL 150 mg p.o. daily, aspirin 81 mg p.o. daily. INPATIENT CONSULT: Dr. Melissa for General Surgery. BRIEF COURSE DURING HOSPITALIZATION: The patient initially was sent from [facility] for low blood pressures and tachycardia. He was essentially admitted for sepsis with CAT scan revealing colitis. Stool for C. diff came back positive. He was placed on vancomycin. All IV antibiotics wer e discontinued. He has responded well to oral vancomycin. His stool frequency is 1 to 2 in the last 36 hours. The patient still has some low potassium levels and has been advised to continue potassiu m once a day. He needs metabolic panel to be done every 3 days, at least x3. He was evaluated by Dr Apolonia Melissa in view of recent abdominal surgery done for small-bowel obstruction with the wound VAC stil l in place for 2 wounds. These are granulating well per Dr. Melissa and needs to continue wound VAC. The patient needs follow up with Dr. Melissa as advised. A total of 35 minutes was spent on discharge plan. Prior to discharge, he is tolerating oral diet. He likely will need assistance with eating. Please see a [id number] documentation on [facility] for the day of discharge.
--- NOTE | 2018-05-30 16:08 | EKG ---
Test Reason : Blood Pressure : / mmHG Vent. Rate : 106 BPM Atrial Rate : 106 BPM P-R Int : 170 ms QRS Dur : 096 ms QT Int : 370 ms P-R-T Axes : 067 058 206 degrees QTc Int : 491 ms Sinus tachycardia Septal infarct , age undetermined Abnormal ECG Confirmed by DELMA CHRIS, GRACE ([id number]), newspaper editor managing KENROY HARTMANN ([id number]) on 05/30/2018 4:07:54 PM Referred By: Confirmed By:GRACE NGUYỄN MD
== END 2018-05-28 15:47 | DRG 872 ==
LOC: ERS 06:34 → T4-B 13:58
PROVIDERS: ADMIT Internal Medicine; ATTEND Internal Medicine
DX: A41.4 Sepsis due to anaerobes (principal); A04.72 Enterocolitis due to Clostridium difficile, not specified as recurrent; I69.351 Hemiplegia and hemiparesis following cerebral infarction affecting right dominant side; Z66 Do not resuscitate; E11.9 Type 2 diabetes mellitus without complications; Z79.4 Long term (current) use of insulin; F25.9 Schizoaffective disorder, unspecified; J44.9 Chronic obstructive pulmonary disease, unspecified; I10 Essential (primary) hypertension; I69.320 Aphasia following cerebral infarction; I69.391 Dysphagia following cerebral infarction; R13.10 Dysphagia, unspecified; L89.322 Pressure ulcer of left buttock, stage 2; Z74.01 Bed confinement status; Z91.81 History of falling; Z87.891 Personal history of nicotine dependence; E78.5 Hyperlipidemia, unspecified; Z87.01 Personal history of pneumonia (recurrent); I48.0 Paroxysmal atrial fibrillation; M47.896 Other spondylosis, lumbar region; M19.90 Unspecified osteoarthritis, unspecified site
CPT/HCPCS: 36415; 36416; 51701; 71045; 74022; 74177; 80048; 80053; 81003; 83605; 85025; 87045; 87046; 87086; 87324; 87449; 87899; 93005; 94760; 96361; 96365; 96367; A4216; G8978-GP-CM; G8979-GP-CM; G8980-GP-CM; G8996-GN-CL; G8997-GN-CJ; J1650; J2185; J3370; J3480; J7050; J7620

== ENCOUNTER 2018-06-22 08:10 | Inpatient (IN) | payer MEDICARE, MEDICAID ==
--- NOTE | 2018-06-22 08:55 | RAD ---
CHEST 1 VIEW PORTABLE: HISTORY: A 67-year-old male with a history of dyspnea and shortness of breath. COMPARISON: 05/25/2018. FINDINGS: Old granulomatous disease. Atherosclerosis of the aorta. Minimal increased markings bilaterally wit hout confluent pneumonia, overt edema, or pleural effusion. IMPRESSION: Stable-appearing chest. Old granulomatous disease. Atherosclerosis of the aorta. POS: [facility]
[2018-06-22 08:57] LABS: #Eosinphils 0.1 thou/uL (0.0-0.7); #Lymphocytes 1.6 thou/uL (1.20-3.40); #Monocytes 0.3 thou/uL (0.11-0.59); #Neutrophils 4.7 thou/uL (1.40-6.50); %Basophils 0.7 % (0.0-1.0); %Eosinophils 1.4 % (0.0-10.0); %Lymphocytes 23.9 % (21.0-51.0); Hemoglobin 12.7 g/dL (14.0-18.0); Mean Corpuscular HGB CONC 30.8 g/dL (32.0-36.0); Mean Corpuscular Volume 90.7 fL (78.0-98.0); Mean Platelet Volume 6.3 fL (7.4-10.4); Platelet Count 336 thou/uL (130-400); Red Blood Cell (RBC) Count 4.56 mill/uL (4.70-6.10); White Blood Cell (WBC) Count 6.8 thou/uL (4.8-10.8)
[2018-06-22 09:00] LABS: Actual Bicarbonate (HCO3a) 28.6 mEq/L (22-28); Analyzer IN Cardio ER; Base Excess (BEa) 3.8 mEq/L (-2.0 to +3.0); Calcium, Ionized 1.23 mmol/L (1.12-1.30); Carboxyhemoglobin (COHb) 0.3 gm% (0.0-3.0); O2 Tension (PaO2) 78.7 mmHg (> 80.0); Potassium - ABG Lab 3.59 mmol/L (3.70-5.30); Puncture Site RB; pH, Arterial 7.43 (7.35-7.45)
[2018-06-22] MEDS ORDERED: Furosemide 40 MG/4 ML VIAL ONE (09:02)
[2018-06-22 09:33] LABS: CKMB 2.3 ng/mL (0-6.6); Troponin I Less than 0.010 ng/mL (< 0.028)
[2018-06-22 09:47] LABS: ALT (SGPT) 59 U/L (8-55); AST (SGOT) 42 U/L (5-34); Albumin 3.2 g/dL (3.4-4.8); Alkaline Phosphatase 79 U/L (40-150); Anion Gap 15 mmol/L (10-20); BUN (Urea Nitrogen) 9 mg/dL (8.4-25.7); Bilirubin, Total 0.7 mg/dL (0.2-1.2); CK (CPK) 30 U/L (30-200); Calc. Creatinine Clearance 0 mL/min (70-130); Calcium 9.3 mg/dL (7.8-10.44); Carbon Dioxide 24 mmol/L (23-31); Chloride 103 mmol/L (98-107); Estimated GFR-MDRD Greater than 90; Globulin 4.9 g/dL (2.4-3.5); Glucose 70 mg/dL (80-115); Lipase 34 U/L (8-78); Potassium 3.9 mmol/L (3.5-5.1); Protein, Total 8.1 g/dL (5.8-8.1); Sodium 138 mmol/L (136-145)
--- NOTE | 2018-06-22 11:27 | HP ---
PRIMARY CARE PHYSICIAN: Teagan Walton M.D. REASON FOR ADMISSION: Acute hypoxic respiratory failure. HISTORY OF PRESENT ILLNESS: This is a 67-year-old male, who has multiple medical problems including diabetes and hypertension, who lives at [facility] where he was found hypoxic. As per report, the patient's saturation was 70s at jail and his blood sugar was in the 30s and that is why paramedics were called and patient was sent to emergency room for evaluation. In the emergency room, the patient was tachypneic. He was in respiratory distress and that is why BiPAP was started, because he was not maintaining saturation even with high-flow nasal cannula oxygen. The patient was tachycardic. He was not having any fever. Unfortunately, the patient was not able to provide any history, because of his cognitive status. I spoke with the patient's medical power of erisa attorney, who is his sister and confirmed his DNR status, which she has at jail as well as she wanted to continue in hospital as well. When I saw this patient at that time, the patient was on BiPAP. He was still tachycardic and tachypneic. His blood pressure was fine. At that point, we decided to do CT angiography to rule out any thromboembolic disorder. Patient will be admitted to [facility]. PAST MEDICAL HISTORY: 1. History of cerebrovascular accident with residual right-sided weakness and aphasia. 2. COPD. 3. Hypertension. 4. Paroxysmal atrial fibrillation. 5. Oropharyngeal dysphagia. 6. Dyslipidemia. 7. Degenerative spine disease. 8. Osteoarthritis. 9. Poor functional status. 10. History of aspiration pneumonia. 11. History of small-bowel obstruction, complicated with peritonitis, required surgery. 12. Chronic abdominal wound. 13. Diabetes, type 2. PAST SURGICAL HISTORY: Abdominal surgery in 05/2018 for small-bowel obstruction. PAST PSYCHIATRIC HISTORY: Schizophrenia. ALLERGY: Lisinopril, Metformin, Triamcilone SOCIAL HISTORY: Patient is from [facility]. He is a former smoker. Currently, no history of tobacco, alcohol, or illicit drug abuse. FAMILY HISTORY: Positive for coronary artery disease to his mom. CODE STATUS: The patient is DNR and this is confirmed with his sister, who is medical power of erisa attorney, Ms. Worley, on her phone [phone]. REVIEW OF SYSTEMS: All review of systems tried to review with the patient, but unable to review, because of nonverbal status as well as cognitive status. CURRENT HOME MEDICATIONS: Based on our most recent discharge from hospital, he was on following medications: Aspirin 81 mg daily, Wellbutrin 150 mg p.o. daily , Pletal 100 mg p.o. b.i.d., Pepcid 20 mg p.o. daily, gabapentin 600 mg p.o. t.i.d., Humulin 70/30 20 units subcu b.i.d., metoprolol tartrate 75 mg p.o. b.i.d., risperidone 4 mg p.o. daily, Zocor 40 mg p.o. daily, potassium chloride 40 mEq p.o. daily. EMERGENCY ROOM COURSE: Patient is given vancomycin, Levaquin, IV fluid, and Lasix 40 mg. PHYSICAL EXAMINATION: VITAL SIGNS: On arrival, blood pressure 127/69, pulse 118, respiratory rate 24 , temperature 97.8, saturation 88% on 3-liter oxygen, and 92% on BiPAP, weight 47.6 kilograms. GENERAL: Patient is currently alert, hypertensive, tachycardic, hypoxic on BiPAP. HEENT: Head: Normocephalic, atraumatic. Eyes: Pupils round, reactive to light. Extraocular muscle intact. ENT: Oropharynx within normal limits. Poor dentition more heard. Moist mucous membranes. NECK: Supple, no JVD, no thyromegaly, no carotid bruit. LUNGS: Bilaterally reduced air entry. No end-expiratory wheezing. No accessory muscles of respiration in use. CARDIOVASCULAR: S1 and S2 regular. Tachycardia. No murmur, no gallop, no rub. ABDOMEN: Patient does have wound over abdomen, which is covered with a dressing. Bowel sounds present. No peritoneal sign. BACK EXAMINATION: Unremarkable. No CVA tenderness. EXTREMITIES: Upper extremity, passive movement of all joints are normal, though contracture noted. Lower extremity, no edema. Distal pulsation intake. Spasticity noted. SKIN: No skin rash other than wound. Dry skin. NEUROLOGIC: Unable to assess at this point, because patient is not following any commands. He does have residual weakness from previous stroke. SIGNIFICANT LABORATORY DATA: EKG showing sinus tachycardia. Chest x-ray, based on my review, no acute cardiopulmonary process, cardiomegaly. CBC: WBC 6.8, hemoglobin 12.7, platelets 336. ABG: PH 7.43, bicarbonate 28.6, CO2 of 44 , O2 of 78.7, saturation 95.2 on 4 liters. BMP: Sodium 138, potassium 3.9, chloride 103, carbon dioxide 24, BUN 9, creatinine 0.68, glucose 70, calcium 9.3. Lactic acid 1.7. LFT: AST 42, ALT 59, alkaline phosphatase 79, albumin 3.2, CK is 30, CK-MB 2.3, troponin I less than 0.010. BNP 19.2, lipase 34. ASSESSMENT AND PLAN: 1. Acute respiratory failure with hypoxia. This patient was found hypoxic at jail. He is relatively hypotensive as well as tachycardic. His chest x -ray is showing chronic obstructive pulmonary disease-type of changes, but no congestive heart failure. His BNP is normal. At this point, patient is at high risk for DVT or PE and that is why we will get CT angiography to rule out any thromboembolic disorder. The patient is requiring BiPAP and that is why patient will be admitted in IMCU. The patient will be consulted by Dr. Ramon , who is material liaison graduation coach. We will try to wean off of BiPAP after admission and we will observe closely for another 24 hours. If patient's condition is stabilized, then we will consider transferring him out. 2. Chronic obstructive pulmonary disease exacerbation. At this point, this is our tentative diagnosis and that is why we will start DuoNeb q.6 hourly, Solu- Medrol 40 mg IV q.6 hourly, and empiric antibiotic therapy with vancomycin and cefepime. 3. Hypoglycemia, associated with diabetes, type 2. We will hold on his scheduled insulin. We will continue with insulin as per sliding scale per protocol. Diabetic diet will be given. 4. Transaminitis. We will monitor LFT again tomorrow, most likely related with hypoxia. 5. Hypoalbuminemia, related with a protein-calorie malnutrition, moderate. Patient will be given nutritional support with Glucerna 1.2 and Manjinder b.i.d. 6. Abdominal wound, which is present on admission and the patient will require wound care. 7. History of cerebrovascular accident with residual weakness. Patient will need supportive care. 8. History of peripheral vascular disease. Continue Pletal 100 mg p.o. b.i.d. , aspirin 81 mg p.o. daily, and Zocor 40 mg p.o. at bedtime. 9. History of anxiety and depression. We will verify his home medication including Wellbutrin-XL and risperidone, which we will continue as per home dosage. 10. Deep venous thrombosis prophylaxis. Lovenox 40 mg subcutaneous daily. 11. Gastrointestinal prophylaxis, Pepcid 20 mg IV b.i.d. 12. Code status: The patient is DNR. This is confirmed with the patient's medical power of erisa attorney, his sister Brunilda, on her phone. Disposition plan based on clinical course. We are expecting patient's stay in hospital more than 2 midnights. Plan of care discussed with the patient in detail. CARINA
[2018-06-22 11:38] LABS: Bilirubin Negative (Negative); Blood, Urine Negative (Negative); Clarity CLEAR (Clear); Glucose, Urine (Dipstick) Negative (Negative); Leukocyte Negative (Negative); Nitrite Negative (Negative); Protein, Urine (Dipstick) Negative (Neg-Trace); Specific Gravity, Urine 1.007 (1.002-1.036); Urobilinogen 0.2 mg/dL (0.2-1.0)
[2018-06-22] MEDS ORDERED: ISOVUE-370 76%-LOCM 1 ML ONE (13:30)
[2018-06-22] MEDS ORDERED: Acetaminophen 325 MG TAB PO PRN (13:40)
[2018-06-22] MEDS ORDERED: Senokot S 8.6-50 MG TAB PO PRN (13:40)
[2018-06-22] MEDS ORDERED: Bisacodyl 5 MG TAB PO PRN (13:40)
[2018-06-22] MEDS ORDERED: Artificial Tears 18 DROP/0.9 ML EA EYE PRN (13:40)
[2018-06-22] MEDS ORDERED: Dextrose 50% Abboject 50 ML SYRINGE SLOW IVP PRN (13:40)
[2018-06-22] MEDS ORDERED: hydrALAZINE 20 MG/ML VIAL SLOW IVP PRN (13:40)
[2018-06-22] MEDS ORDERED: Dextrose 5% in Water 1,000 ML IV PRN (13:40)
[2018-06-22] MEDS ORDERED: HumaLOG 300 UNITS/3 ML VIAL SC PRN (13:40)
[2018-06-22] MEDS ORDERED: HYDROcodone/Acetaminophen 5/325 mg Tablet PO PRN (13:40)
[2018-06-22] MEDS ORDERED: Bisacodyl 10 MG SUPP PR PRN (13:40)
[2018-06-22] MEDS ORDERED: Loperamide HCl 2 MG CAP PO PRN (13:40)
[2018-06-22] MEDS ORDERED: Ondansetron ODT 4 MG TAB PO PRN (13:40)
[2018-06-22] MEDS ORDERED: Loratadine 10 MG TAB PO PRN (13:40)
[2018-06-22] MEDS ORDERED: Eucerin (Mineral Oil/Petrolatum,White) 30 gm Jar TOP PRN (13:40)
[2018-06-22] MEDS ORDERED: Ondansetron HCl/PF 4 MG/2 ML Vial IVP PRN (13:40)
[2018-06-22] MEDS ORDERED: Diabetic Tussin 200 MG/10 ML UDCUP PO PRN (13:40)
[2018-06-22] MEDS ORDERED: Zolpidem Tartrate 5 MG TAB PO PRN (13:40)
[2018-06-22] MEDS ORDERED: Sodium Chloride 0.65% Nasal 44 ML BOT EA NARE PRN (13:40)
[2018-06-22] MEDS ORDERED: Scopolamine 1.5 mg/72 hour Patch TD SCH (16:00)
--- NOTE | 2018-06-22 18:36 | CON ---
DATE OF CONSULTATION: 06/22/2018 The following encompasses 70 minutes of time; of that 70 minutes, greater than 50% of the time was sp ent with the patient and/or on the patient's unit in the hospital. CONSULTING PHYSICIAN: Jeff Cabral MD REASON FOR CONSULTATION: Acute hypoxic respiratory failure. HISTORY OF PRESENT ILLNESS: The patient is aphasic and cannot give me a history. What I have is obt ained by reviewing his records. He is 67 years old. I saw him during his last hospitalization. [facility] in a prison. He has had a stroke in the past and is very debilitated from that. He was just in the hospital with aspiration pneumonia. Apparently, he came to the emergency room earlier to day after being found hypoxic in the prison. He was profoundly hypoglycemic. He was briefly o n BiPAP, but that was discontinued upon his arrival to the Intermediate Care Unit. He is currently a ble to indicate that he is thirsty. He has profound cough according to the nursing staff. PAST MEDICAL HISTORY: 1. Cerebrovascular accident with right-sided hemiparesis and aphasia. 2. Chronic obstructive pulmonary disease. 3. Recent aspiration pneumonia. 4. Hypertension. 5. Paroxysmal atrial fibrillation. 6. Oropharyngeal dysphagia. 7. Hyperlipidemia. 8. Degenerative joint disease. 9. Osteoarthritis. 10. Small-bowel obstruction complicated by peritonitis, which required surgery. 11. Chronic abdominal wound. 12. Diabetes mellitus type 2. PAST SURGICAL HISTORY: Recent laparotomy for small-bowel obstruction. PSYCHIATRIC HISTORY: Remarkable for schizophrenia. ALLERGIES: LISINOPRIL, METFORMIN, TRIAMCINOLONE CREAM. SOCIAL HISTORY: Former smoker. Does not use alcohol or illicit drugs. Lives in [facility]. FAMILY MEDICAL HISTORY: Remarkable for coronary artery disease. REVIEW OF SYSTEMS: Cannot be obtained secondary to the patient's mental status. HOME MEDICATIONS: Reviewed and are listed in the history and physical portion of the patient's chart . PHYSICAL EXAMINATION: VITAL SIGNS: Temperature 97.8, blood pressure 127/69, O2 sat is currently 100% on 2 liters nasal can nula, pulse 118, respirations 20. GENERAL: He is awake, alert, and in no distress. HEENT: Pupils react. Sclerae anicteric. Oropharynx clear. LUNGS: Coarse breath sounds radiating from the neck area. CARDIOVASCULAR: S1, S2 regular. LUNGS: Rhonchi heard bilaterally. CARDIOVASCULAR: S1 and S2 regular. ABDOMEN: Soft, nontender, nondistended. EXTREMITIES: No clubbing, cyanosis, or edema. LABORATORY AND X-RAY FINDINGS: White blood cell count 6.8, hematocrit 41.3, platelet count 336. PH 7.43, pCO2 of 44, pO2 of 78 and that was on 4 liters. Sodium 138, potassium 3.9, chloride 103, CO2 of 24, BUN 9, creatinine 0.7, glucose 70, AST 42, ALT 59, total bilirubin is 0.7. His x-ray shows no acute mass, effusion, or infiltrate. ASSESSMENT: 1. Transient respiratory distress, probably related to chronic aspiration. 2. Multiple other medical problems, listed above. PLAN: The patient's respiratory insufficiency has already improved. From my standpoint, he can be t ransferred out of intermediate care to medical. He has a standing DNR order. I agree with the antib iotics. I think that a scopolamine patch might help him with his secretions. We will follow.
[2018-06-22] MEDS: Famotidine/PF 20 mg/2ml Vial SLOW IVP SCH (21:41)
[2018-06-22] MEDS: Cefepime 2 GM in Sodium Chloride 0.9% 100 ML IVPB SCH (21:41)
[2018-06-22] MEDS ORDERED: Vancomycin HCl 1.25 GM in Sodium Chloride 0.9% 250 ML 250 ML IVPB SCH (22:00)
--- NOTE | 2018-06-22 23:31 | CT ---
CT ANGIOGRAM THORAX WITH IV CONTRAST AND 3D RECONSTRUCTIONS: 06/22/2018 HISTORY: Hypoxia. COMPARISON: CT thorax on 03/06/2018. FINDINGS: No filling defect are seen in the pulmonary arteries to suggest a pulmonary embolus. Vascular calcifications are seen in the coronary arteries and involving the thoracic aorta. The thor acic aorta is normal in caliber without evidence of an aortic dissection. There is a question of left ventricular wall hypertrophy. A prominent calcified mediastinal lymph node is again present in a subcarinal location. A few scatte red calcified granulomata are also seen in the lungs bilaterally. A noncalcified pulmonary nodule is again seen at the medial aspect of the superior segment, right low er lobe, which measures 12 mm, with a measurement on the prior study of 11 mm. There is dependent at electasis bilaterally. There is a thin-walled lucency seen within the superior segment, right lower lobe, which was also present on the prior examination. There is no evidence of lymphadenopathy. The visualized upper abdomen has a grossly normal CT appearance. There is a question of narrowing within the left subclavian vein, at the level of the clavicle and an terior first rib. This may be positional, but there is opacification of multiple collateral vessels about the left chest. The patient's left arm is raised. IMPRESSION: 1. No CT evidence of a pulmonary embolus. 2. Atherosclerotic vascular calcifications. The thoracic aorta is normal in caliber, without evidenc e of an aortic dissection. 3. Question of luminal narrowing involving the left subclavian vein, with multiple collaterals about the left chest. This could be positional, as the area of narrowing is at the region of the clavicle and anterior first rib. 4. Stable, noncalcified pulmonary nodule, right lower lobe. Follow-up evaluation in six months is r ecommended. 5. Evidence of prior granulomatous disease. CODE T POS: [facility]
[2018-06-23 05:27] LABS: #Lymphocytes 0.6 thou/uL (1.20-3.40); #Monocytes 0.1 thou/uL (0.11-0.59); #Neutrophils 5.3 thou/uL (1.40-6.50); %Eosinophils 0.3 % (0.0-10.0); %Lymphocytes 10.1 % (21.0-51.0); %Monocytes 1.8 % (0.0-10.0); %Neutrophils 87.8 % (42.0-75.0); Hemoglobin 10.8 g/dL (14.0-18.0); Mean Corpuscular HGB CONC 30.8 g/dL (32.0-36.0); Mean Corpuscular Hemoglobin 27.6 pg (27.0-31.0); Mean Corpuscular Volume 89.7 fL (78.0-98.0); Mean Platelet Volume 8.2 fL (7.4-10.4); Platelet Count 233 thou/uL (130-400); RBC Distribution Width 14.8 % (11.5-14.5); Red Blood Cell (RBC) Count 3.92 mill/uL (4.70-6.10)
[2018-06-23] MEDS: Vancomycin HCl 1 GM in Premix Bag 1 BAG IVPB SCH ×2 (05:36→14:17)
[2018-06-23] MEDS: HumaLOG 300 UNITS/3 ML VIAL SC PRN ×3 (06:28→16:57)
[2018-06-23 06:29] LABS: ALT (SGPT) 38 U/L (8-55); AST (SGOT) 17 U/L (5-34); Albumin 2.9 g/dL (3.4-4.8); Alkaline Phosphatase 64 U/L (40-150); Anion Gap 17 mmol/L (10-20); BUN (Urea Nitrogen) 14 mg/dL (8.4-25.7); Bilirubin, Total 0.5 mg/dL (0.2-1.2); Calc. Creatinine Clearance 92 mL/min (70-130); Calcium 8.7 mg/dL (7.8-10.44); Carbon Dioxide 22 mmol/L (23-31); Chloride 101 mmol/L (98-107); Estimated GFR-MDRD Greater than 90; Globulin 4.1 g/dL (2.4-3.5); Glucose 239 mg/dL (80-115); Potassium 4.7 mmol/L (3.5-5.1); Sodium 135 mmol/L (136-145)
--- NOTE | 2018-06-23 09:20 | PRG ---
DATE OF SERVICE: 06/23/2018 The patient is doing okay, he had no acute complaints. PHYSICAL EXAMINATION: VITAL SIGNS: On exam temperature is 97.5, pulse 79, respirations 18, O2 sat 100% on 2 liters, blood pressure 113/51. HEENT: Unremarkable. NECK: No JVD. LUNGS: Improved breath sounds, less course than yesterday. CARDIAC: S1 and S2 regular. ABDOMEN: Soft. EXTREMITIES: No edema. Micro shows no growth to date. LABORATORY DATA: White blood cell count 6, hematocrit 35.1, platelet count 233. Sodium 135, potassi um 4.7, chloride 101, CO2 22, BUN 14, creatinine 0.7, glucose 239. ASSESSMENT: 1. Suspect that this gentleman is chronically aspirating. 2. Multiple other medical problems. PLAN: 1. The patient can be transferred to the floor, continue the scopolamine patch. 2. Continue antibiotics for the time being until cultures have resulted.
[2018-06-23] MEDS: Cefepime 2 GM in Sodium Chloride 0.9% 100 ML IVPB SCH ×2 (09:50→22:31)
[2018-06-23] MEDS: Famotidine/PF 20 mg/2ml Vial SLOW IVP SCH ×2 (09:50→22:32)
[2018-06-23] MEDS: Enoxaparin Sodium 40 MG/0.4 ML SYRINGE SC SCH (09:51)
[2018-06-23] MEDS: Saccharomyces boulardii 250 MG CAP PO SCH (09:51)
[2018-06-23 13:43] VITALS: BMI 21.4
--- NOTE | 2018-06-23 14:33 | PDOC.PN ---
- Subjective Encounter Start Date: 06/23/18 Encounter Start Time: 14:31 Does not speak, but signifies he is ok and does not need anything (consistent with his demeanor at prior admission). - Objective Resuscitation Status: Resuscitation Status DNR:Do Not Resuscitate Vital Signs & Weight: Vital Signs (12 hours) Temp Pulse Resp BP Pulse Ox 06/23/18 14:20 82 16 95 06/23/18 11:37 94 L 06/23/18 11:05 98.2 F 78 18 96/55 L 94 L 06/23/18 08:00 100 06/23/18 07:30 97.5 F L 79 18 113/51 L 100 06/23/18 07:06 80 14 06/23/18 04:00 97.0 F L 84 20 129/59 L 100 Weight Admit Weight 156 lb Weight 158 lb 5 oz I&O: 06/22/18 06/23/18 06/24/18 06:59 06:59 06:59 Intake Total 850 Output Total 1325 Balance -475 Result Diagrams: 06/23/18 04:06 06/23/18 04:06 Additional Labs: Accuchecks 06/23/18 06/23/18 06/22/18 11:28 05:29 20:43 POC Glucose 218 H 222 H 245 H 06/22/18 16:34 POC Glucose 215 H Phys Exam - Physical Examination Constitutional: NAD Respiratory: no wheezing, no rales, no rhonchi Diminshed. Cardiovascular: RRR, no significant murmur Gastrointestinal: soft, non-tender, no distention, positive bowel sounds Musculoskeletal: no edema Skin: no rash, normal turgor Dx/Plan (1) Acute respiratory failure Code(s): J96.00 - ACUTE RESPIRATORY FAILURE, UNSP W HYPOXIA OR HYPERCAPNIA Status: Acute (2) Dysphagia Code(s): R13.10 - DYSPHAGIA, UNSPECIFIED Status: Acute Comment: Discussed with SPEECH THERAPIST last evening. Obtaining MBS today. Will then decide on oral feeds v. PEG. Continue TPN. (3) COPD (chronic obstructive pulmonary disease) Status: Chronic Qualifiers: Comment: Stable. (4) DM type 2 (diabetes mellitus, type 2) Status: Chronic Qualifiers: (5) HTN (hypertension) Code(s): I10 - ESSENTIAL (PRIMARY) HYPERTENSION Status: Chronic Qualifiers: (6) Right hemiplegia Code(s): G81.91 - HEMIPLEGIA, UNSPECIFIED AFFECTING RIGHT DOMINANT SIDE Status : Chronic (7) Schizoaffective disorder Code(s): F25.9 - SCHIZOAFFECTIVE DISORDER, UNSPECIFIED Status: Chronic Qualifiers: (8) Transaminitis Code(s): R74.0 - NONSPEC ELEV OF LEVELS OF TRANSAMNS & LACTIC ACID DEHYDRGNSE Status: Resolved (9) Peripheral vascular disease Code(s): I73.9 - PERIPHERAL VASCULAR DISEASE, UNSPECIFIED Status: Acute - Plan * Acute respiratory failure. Improving. Continue broad approach with nebs, steroids, abx and supplemental oxygen. * Likely aspiration. Looks like SPEECH THERAPIST has but him on pureed diet with nectar thick liquids. .
[2018-06-24] MEDS: Vancomycin HCl 1 GM in Premix Bag 1 BAG IVPB SCH (02:33)
[2018-06-24] MEDS ORDERED: Vancomycin HCl 1.25 GM in Sodium Chloride 0.9% 250 ML 250 ML IVPB SCH (03:00)
--- NOTE | 2018-06-24 09:07 | PRG ---
DATE OF SERVICE 06/24/2018 The patient is up on the medical floor. He looks to be doing well. He is eating without limitation. PHYSICAL EXAMINATION: VITAL SIGNS: His temperature 98.7, pulse 86, respirations 19, O2 sat 100%, blood pressure 119/64. HEENT: Unremarkable. NECK: No JVD. LUNGS: Clear. CARDIAC: S1 and S2 regular. ABDOMEN: Soft. EXTREMITIES: No edema. ASSESSMENT: 1. Aspiration pneumonia. 2. Oropharyngeal dysphagia. PLAN: Continue scopolamine patch as needed for secretions. His cultures are negative, so I would go ahead and stop the IV vancomycin. Should be suitable for discharge on oral antibiotic medication. I would suggest Omnicef.
[2018-06-24] MEDS: Cefepime 2 GM in Sodium Chloride 0.9% 100 ML IVPB SCH (09:41)
[2018-06-24] MEDS: Enoxaparin Sodium 40 MG/0.4 ML SYRINGE SC SCH (09:42)
[2018-06-24] MEDS: Saccharomyces boulardii 250 MG CAP PO SCH (09:43)
[2018-06-24] MEDS: Famotidine/PF 20 mg/2ml Vial SLOW IVP SCH (09:43)
[2018-06-24] MEDS: HumaLOG 300 UNITS/3 ML VIAL SC PRN (16:04)
[2018-06-24 18:12] VITALS: BP 125/58; TEMP 98.2
[2018-06-24] MEDS ORDERED: Famotidine 20 MG TAB PO SCH (21:00)
--- NOTE | 2018-06-24 21:47 | DIS ---
DATE OF ADMISSION: 06/22/2018 DATE OF DISCHARGE: 06/24/2018 DISCHARGE DIAGNOSES: 1. Acute respiratory failure. 2. Likely recurrent aspiration. 3. Dysphagia. 4. Chronic obstructive pulmonary disease. 5. Diabetes mellitus type 2. 6. Hypertension. 7. History of right hemiplegia. 8. Schizoaffective disorder. 9. Transaminitis. 10. History of peripheral vascular disease. HISTORY: This patient is a 67-year-old male who has been admitted here previously. The patient has a history of CVA with a right hemiplegia and some dysphagia that was noted on his previous admission. The patient presented again on this occasion through the emergency department from the [facility] where he was found to be hypoxic. The patient was found to have sats running in the 70s. Apparently he was also noted to have some hypoglycemia in the 30s. He was seen in response by Ambul ance Service where he was noted to be tachypneic with some respiratory distress. He was started on B iPAP and subsequently brought to the emergency department. The patient was initially breathing at 24 per minute. Heart rate was 118, O2 sat was 88% on 3 liters. Chest x-ray showed a stable appearing chest with some old granulomatous disease. CTA of the chest revealed no PE, stable pulmonary nodule right lower lobe. Subsequently, the patient was admitted what appeared to be pneumonia and COPD exac erbation. He was seen in consultation by Pulmonary and given Solu-Medrol with noninvasive pulmonary support and broad spectrum antibiotics. The patient improved over the following couple of days and w as felt the patient likely was having some chronic aspiration issues per Speech Pathology. He was pl aced back on a pureed diet with nectar thick liquids and crushed meds. He did well with that, but on the day of discharge, his sister was waiting to talk to me to challenge whether he needed to stay on that because he had been on more solid foods previously. I explained that it is simply a risk versu s scenario and the more solid type foods he endeavors to eat, the more likely he is to have kervin e aspiration with pneumonia and readmissions to the hospital. PHYSICAL EXAMINATION: On the day of discharge: VITAL SIGNS: Temperature was 98.7, pulse 70, respirations 16, O2 sat 100% on 2 liters. BP was 154/7 3. He was awake and alert, not conversant as his baseline. HEART: Regular rate and rhythm. LUNGS: Clear bilaterally. ABDOMEN: Benign. He had been seen by Pulmonology, who recommended the patient could be safely disch arged. DISPOSITION: The patient will be discharged to home. He will continue his usual home medications an d have prescription for Omnicef and continue the scopolamine patch to minimize his secretions. ACTIVITY: As tolerated. DIET: Diabetic diet with 2000 calories with pureed food and nectar thick liquids with crushed medica tions. The patient is to follow up with Dr. Walton.
== END 2018-06-24 16:51 | DRG 177 ==
LOC: ERS 08:10 → ERHOLD 10:24 → IMCU/EMU 13:36 → T4-B 06-23 11:04
PROVIDERS: ADMIT Internal Medicine; ATTEND Internal Medicine
PROC: 5A09357 Assistance with Respiratory Ventilation, Less than 24 Consecutive Hours, Continuous Positive Airway Pressure (ICD-10-PCS; principal; 2018-06-22)
DX: J69.0 Pneumonitis due to inhalation of food and vomit (principal); J96.01 Acute respiratory failure with hypoxia; I69.351 Hemiplegia and hemiparesis following cerebral infarction affecting right dominant side; J44.1 Chronic obstructive pulmonary disease with (acute) exacerbation; E44.0 Moderate protein-calorie malnutrition; Z68.21 Body mass index [BMI] 21.0-21.9, adult; R13.12 Dysphagia, oropharyngeal phase; I10 Essential (primary) hypertension; I48.0 Paroxysmal atrial fibrillation; E11.9 Type 2 diabetes mellitus without complications; F20.9 Schizophrenia, unspecified; Z87.891 Personal history of nicotine dependence; Z66 Do not resuscitate; M48.8X9 Other specified spondylopathies, site unspecified; M19.90 Unspecified osteoarthritis, unspecified site; Z79.899 Other long term (current) drug therapy; Z79.82 Long term (current) use of aspirin; Z79.4 Long term (current) use of insulin; S31.119A Laceration without foreign body of abdominal wall, unspecified quadrant without penetration into peritoneal cavity, initial encounter; E88.09 Other disorders of plasma-protein metabolism, not elsewhere classified; Z88.8 Allergy status to other drugs, medicaments and biological substances; F32.9 Major depressive disorder, single episode, unspecified; F41.9 Anxiety disorder, unspecified
CPT/HCPCS: 36415; 36416; 51702; 71045; 71275; 80053; 80202; 81003; 82553; 82805; 83605; 83690; 83880; 84484; 85025; 87040; 87324; 87449; 93005; 94640; 94660; 96365; 96366; 96367; 96375; G8996-GN-CK; G8997-GN-CK; J0692; J1650; J1940; J1956; J2920; J3370; J7050; J7620; S0028

== ENCOUNTER 2018-06-26 00:22 | Emergency (ER) | payer MEDICARE, MEDICAID ==
[2018-06-26 01:06] LABS: #Basophils 0.1 thou/uL (0.0-0.2); #Eosinphils 0.1 thou/uL (0.0-0.7); #Monocytes 0.4 thou/uL (0.11-0.59); #Neutrophils 6.9 thou/uL (1.40-6.50); %Basophils 0.6 % (0.0-1.0); %Eosinophils 1.2 % (0.0-10.0); %Lymphocytes 20.6 % (21.0-51.0); %Monocytes 4.6 % (0.0-10.0); Hemoglobin 12.3 g/dL (14.0-18.0); Mean Corpuscular HGB CONC 30.8 g/dL (32.0-36.0); Mean Platelet Volume 6.4 fL (7.4-10.4); Platelet Count 289 thou/uL (130-400); RBC Distribution Width 15.2 % (11.5-14.5); Red Blood Cell (RBC) Count 4.39 mill/uL (4.70-6.10); White Blood Cell (WBC) Count 9.4 thou/uL (4.8-10.8)
[2018-06-26 01:26] LABS: ALT (SGPT) 70 U/L (8-55); AST (SGOT) 64 U/L (5-34); Albumin 3.3 g/dL (3.4-4.8); Alkaline Phosphatase 59 U/L (40-150); Anion Gap 10 mmol/L (10-20); BUN (Urea Nitrogen) 11 mg/dL (8.4-25.7); Bilirubin, Total 0.5 mg/dL (0.2-1.2); Calc. Creatinine Clearance 0 mL/min (70-130); Calcium 9.4 mg/dL (7.8-10.44); Carbon Dioxide 33 mmol/L (23-31); Chloride 101 mmol/L (98-107); Estimated GFR-MDRD Greater than 90; Globulin 4.2 g/dL (2.4-3.5); Glucose 108 mg/dL (80-115); Potassium 3.4 mmol/L (3.5-5.1); Protein, Total 7.5 g/dL (5.8-8.1); Sodium 141 mmol/L (136-145)
--- NOTE | 2018-06-27 11:36 | EKG ---
Test Reason : Blood Pressure : / mmHG Vent. Rate : 068 BPM Atrial Rate : 068 BPM P-R Int : 168 ms QRS Dur : 084 ms QT Int : 464 ms P-R-T Axes : 048 033 069 degrees QTc Int : 493 ms Normal sinus rhythm Prolonged QT Abnormal ECG Confirmed by RITO FELICIANO DO ([id number]), editorial specialist MAIKEL SAUNDERS ([id number]) on 06/27/2018 11:35:57 AM Referred By: Confirmed By:RITO FELICIANO DO
== END 2018-06-26 03:34 | disposition short-term general hospital (02) ==
LOC: ERS 00:22
DX: E11.649 Type 2 diabetes mellitus with hypoglycemia without coma (principal); E78.5 Hyperlipidemia, unspecified; J44.9 Chronic obstructive pulmonary disease, unspecified; I10 Essential (primary) hypertension; F20.9 Schizophrenia, unspecified; Z87.891 Personal history of nicotine dependence; Z79.4 Long term (current) use of insulin; Z79.899 Other long term (current) drug therapy; Z79.82 Long term (current) use of aspirin
CPT/HCPCS: 36416; 80053; 85025; 93005

== ENCOUNTER 2018-06-26 05:46 | Emergency (ER) | payer MEDICARE, MEDICAID | END 2018-06-26 12:10 | disposition home or self-care (01) | LOC: ERS 05:46 | DX: E11.649 Type 2 diabetes mellitus with hypoglycemia without coma (principal); J44.9 Chronic obstructive pulmonary disease, unspecified; F20.9 Schizophrenia, unspecified; I10 Essential (primary) hypertension; E78.5 Hyperlipidemia, unspecified; Z87.891 Personal history of nicotine dependence; Z86.73 Personal history of transient ischemic attack (TIA), and cerebral infarction without residual deficits; Z79.82 Long term (current) use of aspirin; Z79.899 Other long term (current) drug therapy; Z79.4 Long term (current) use of insulin | CPT/HCPCS: 36416; 80053; 85025; 93005; 99285 ==

== ENCOUNTER 2018-10-22 20:22 | Inpatient (IN) | payer MEDICARE, MEDICAID ==
[~2018-10-22 20:22] MED LIST: ISOVUE-370 76%-LOCM 1 ML ONE
[2018-10-22 21:30] LABS: #Lymphocytes 1.3 thou/uL (1.20-3.40); #Monocytes 0.3 thou/uL (0.11-0.59); #Neutrophils 7.2 thou/uL (1.40-6.50); %Basophils 0.3 % (0.0-1.0); %Eosinophils 0.2 % (0.0-10.0); %Lymphocytes 14.4 % (21.0-51.0); %Monocytes 3.8 % (0.0-10.0); %Neutrophils 81.3 % (42.0-75.0); Hemoglobin 15.8 g/dL (14.0-18.0); Mean Corpuscular HGB CONC 32.3 g/dL (32.0-36.0); Mean Corpuscular Hemoglobin 28.7 pg (27.0-31.0); Mean Corpuscular Volume 88.9 fL (78.0-98.0); Mean Platelet Volume 8.1 fL (7.4-10.4); Platelet Count 266 thou/uL (130-400); RBC Distribution Width 14.8 % (11.5-14.5); Red Blood Cell (RBC) Count 5.52 mill/uL (4.70-6.10); White Blood Cell (WBC) Count 8.8 thou/uL (4.8-10.8)
[2018-10-22 21:47] LABS: ALT (SGPT) 26 U/L (8-55); AST (SGOT) 13 U/L (5-34); Albumin 4.4 g/dL (3.4-4.8); Alkaline Phosphatase 83 U/L (40-150); Anion Gap 18 mmol/L (10-20); BUN (Urea Nitrogen) 16 mg/dL (8.4-25.7); Bilirubin, Total 0.9 mg/dL (0.2-1.2); Calc. Creatinine Clearance 0 mL/min (70-130); Calcium 10.9 mg/dL (7.8-10.44); Carbon Dioxide 29 mmol/L (23-31); Chloride 96 mmol/L (98-107); Estimated GFR-MDRD Greater than 90; Globulin 5.1 g/dL (2.4-3.5); Glucose 145 mg/dL (80-115); Lipase 27 U/L (8-78); Potassium 4.5 mmol/L (3.5-5.1); Protein, Total 9.5 g/dL (5.8-8.1); Sodium 138 mmol/L (136-145)
--- NOTE | 2018-10-22 23:08 | CT ---
CT OF THE ABDOMEN AND PELVIS WITH IV CONTRAST: 10/22/18 INDICATION: History of lower abdominal pain. COMPARISON: Prior dated 05/25/18. FINDINGS: there has been interval development of a moderate to severe partial small bowel obstruction. The galvan sition zone is not definitely seen but is suspected within the right lower quadrant of the abdomen. T here is prominent amount of retained stool within the colon and rectum. The bladder is partially deco mpressed. Perirectal soft tissues are unremarkable. No drainable fluid collection is evident. there i s a small right renal cyst. Liver, spleen and pancreas appear within normal limits. Adrenal glands ar e unremarkable appearing. There are moderate calcifications involving the abdominal and pelvic vasculature. Calcified granuloma involving both lower lobes. There are patchy reticular nodularities within the po sterior right lower lobe. There is scattered degenerative and osteoarthritic change. IMPRESSION: 1. Findings suspicious for moderate to severe partial small bowel obstruction with suggested tra nsition zone likely within the right lower quadrant of the abdomen. 2. Prominent amount of retained stool within the colon. 3. Right renal cyst. 4. Reticular nodularity of the right lower lobe is nonspecific and can be seen with aspiration o r bronchiolitis. 5. Other findings as above. POS: [facility]
[2018-10-23] MEDS ORDERED: Benzocaine 20% Spray 60 ML CAN ONE ×2 (00:39→00:40)
[2018-10-23 01:43] LABS: Lactic Acid 2.7 mmol/L (0.5-2.2)
[2018-10-23] MEDS ORDERED: Ondansetron PF 4 MG/2 ML Vial IVP PRN ×2 (01:59→15:35)
[2018-10-23] MEDS ORDERED: Morphine 4 MG/ML VIAL SLOW IVP PRN (02:02)
[2018-10-23] MEDS ORDERED: Dextrose 50% Abboject 50 ML SYRINGE IVP PRN (02:54)
[2018-10-23] MEDS ORDERED: Insulin Regular 300 UNITS/3 ML VIAL SC PRN (02:54)
[2018-10-23] MEDS ORDERED: Dextrose 5% in Water 1,000 ML IV PRN ×2 (02:54→13:12)
[2018-10-23] MEDS: 1/2 NS w/KCL 20 mEq 1,000 ML IV SCH ×2 (03:17→08:16)
[2018-10-23 04:14] VITALS: BMI 27.1
--- NOTE | 2018-10-23 08:44 | RAD ---
PORTABLE AP ABDOMINAL RADIOGRAPH: DATE: 10/23/2018. HISTORY: Evaluation nasogastric tube placement. COMPARISON: 04/21/2018. FINDINGS: Nasogastric tube is noted in place with the tip overlying the left upper quadrant likely in the regio n of the gastric fundus. There is gaseous distention of the loops of small bowel within the visualiz ed upper abdomen. There is evidence of prior granulomatous disease seen in the visualized lung bases . No other interval change. IMPRESSION: 1. Nasogastric tube noted in place with the tip overlying the expected location of the gastric fundu s. 2. Dilatation of loops of small bowel which may be related to either ileus or partial small bowel ob struction. 3. Evidence of prior granulomatous disease with large calcified subcarinal lymph node present. POS: [facility]
[2018-10-23] MEDS ORDERED: Ketorolac Tromethamine 30 MG/ML VIAL IVP PRN (13:12)
[2018-10-23] MEDS ORDERED: Dextrose 50% Abboject 50 ML SYRINGE SLOW IVP PRN (13:12)
[2018-10-23] MEDS ORDERED: HumaLOG 300 UNITS/3 ML VIAL SC PRN (13:12)
[2018-10-23] MEDS ORDERED: Acetaminophen 1,000 MG in Premix Bag 1 BAG IVPB PRN (13:12)
[2018-10-23] MEDS ORDERED: Lactated Ringer's 1,000 ML IV SCH (13:15)
[2018-10-23] MEDS ORDERED: Fleet Enema 133 ML BOT PR SCH (13:30)
--- NOTE | 2018-10-23 14:02 | HP ---
HISTORY OF PRESENT ILLNESS: Jeremiah Mcclure is a 68-year-old male, who has had a previous stroke with right hemiparesis and aphasic. I took care of him on 05/01/2018, when he underwent laparotomy adhesiolysis for complete bowel obstruction. During that operation, he is noted to have probably a small-bowel anastomosis that the family was unaware of and the patient could not communicate. The patient had closure of two enterotomies and postoperatively he did well, tolerated diet, has done well. He presents to the emergency room with vomiting and CAT scan obtained reveals abundant stool and findings of a dilated small bowel without definite transition zone. NG tube has been placed and he has had about 300 to 400 out. His laboratories were normal. White count 8, hemoglobin 15. Basic metabolic profile normal. Glucose 145. Abdominal x-ray, post NG tube placement reveals good placement. HOME MEDICATIONS: 1. Simvastatin 40 mg a day. 2. Metoprolol 75 mg b.i.d. 3. Magnesium hydroxide. 4. Bidex 400 mg t.i.d. p.r.n. 5. Pepcid 20 daily. 6. Pletal 100 mg b.i.d. a.c. 7. Wellbutrin 150 daily. 8. Risperdal 4 mg daily. 9. Omnicef 12 mL b.i.d. 10. Aspirin 81 mg a day. 11. Humulin 70/30, 20 units subcu b.i.d. 12. Gabapentin 600 mg p.o. t.i.d. PAST SURGICAL HISTORY: April of 2018, laparotomy adhesiolysis for bowel obstruction, past operations of lower abdominal of uncertain etiology, family cannot describe. PAST MEDICAL HISTORY: Stroke with right hemiparesis and aphasia, COPD, diabetes mellitus type 2, dyslipidemia, hypertension, degenerative disk disease, history of pneumonia, history of schizophrenia. SOCIAL HISTORY: Tobacco, none. Alcohol, none. REVIEW OF SYSTEMS: Not possible. PHYSICAL EXAMINATION: VITAL SIGNS: 6 feet, 199 pounds, 27 BMI, 97.7, 63, 18, 138/73. HEAD, EARS, EYES, NOSE, AND THROAT: Unremarkable. LUNGS: Clear to auscultation. CARDIAC: Regular rate and rhythm without murmur or gallop. ABDOMEN: Soft and nontender. NG tube in place. EXTREMITIES: Unremarkable. Right hemiparesis. ASSESSMENT AND PLAN: 1. Radiologic findings suggestive of possible bowel obstruction, but more likely constipation. We would recommend small bowel follow-through and diet as tolerated. Pending these findings, I doubt he will need another operation. He should be taking MiraLAX daily due to his immobility and tendency to constipation. I doubt he will need an operation, but we will check his small bowel follow-through. 2. History of dysphagia. 3. Aphasia. 4. Right hemiparesis from stroke. 5. Schizophrenia. 6. Diabetes. Job ID: [id number]
--- NOTE | 2018-10-23 14:19 | RAD ---
TWO VIEWS ABDOMEN AND SINGLE VIEW OF THE CHEST: Comparison: KUB 2-22-19 History: Small bowel obstruction. FINDINGS: Supine and decubitus views of the abdomen and supine view of the chest were performed. Multiple air f illed loops of bowel are seen in the abdomen. There are multiple air fluid levels seen on the decubit us view. No free air is identified. Air is seen in the colon. Contrast in the pelvis is from recent c ontrast examination. An NG tube is seen in the stomach. Calcified granulomas are seen in both thoraces. A large calcified right hilar lymph node/mediastinal lymph node is seen. IMPRESSION: Findings are consistent with either partial or complete small bowel obstruction. POS: [facility]
[2018-10-23] MEDS ORDERED: MD-Gastroview 120 ML BOT ONE (16:46)
--- NOTE | 2018-10-23 17:43 | RAD ---
SMALL BOWEL FOLLOW-THROUGH 10/23/18 HISTORY: Small bowel obstruction. COMPARISON: Same day. FINDINGS: Contrast is administered via the enteric tube. There is contrast within the colon within three hours. IMPRESSION: No evidence for high grade bowel obstruction. POS: [facility]
[2018-10-23] MEDS ORDERED: guaiFENesin 200 MG TAB PO PRN (18:21)
[2018-10-23] MEDS ORDERED: Atorvastatin Calcium 20 MG TAB PO SCH (21:00)
[2018-10-23] MEDS ORDERED: Enoxaparin Sodium 40 MG/0.4 ML SYRINGE SC SCH (21:00)
[2018-10-23] MEDS: Metoprolol Tartrate 50 MG TAB PO SCH (21:15)
[2018-10-23] MEDS: Gabapentin 300 MG CAP PO SCH (21:16)
[2018-10-23] MEDS: Polyethylene Glycol 3350 17 GM Packet PO SCH ×2 (21:16→21:29)
[2018-10-23] MEDS: Citrucel 500 MG TAB PO SCH (21:16)
[2018-10-23] MEDS: Cefdinir 125 MG/5 ML Oral Suspension PO SCH (21:29)
[2018-10-24] MEDS: Cilostazol 100 MG TAB PO SCH ×2 (07:27→16:08)
[2018-10-24] MEDS ORDERED: Bupropion 150 MG XL TAB PO SCH (09:00)
[2018-10-24] MEDS ORDERED: Pantoprazole 40 MG VIAL IVP SCH (09:00)
[2018-10-24] MEDS ORDERED: risperiDONE 1 MG TAB PO SCH (09:00)
[2018-10-24] MEDS ORDERED: Famotidine 20 MG TAB PO SCH (09:00)
[2018-10-24] MEDS ORDERED: Aspirin Chewable 81 MG TAB PO SCH (09:00)
[2018-10-24] MEDS ORDERED: Potassium Chloride 20 MEQ TAB PO SCH (09:00)
[2018-10-24] MEDS: HumuLIN 70/30 (300 UNITS/3 ML VIAL) SC SCH ×2 (09:24→16:09)
[2018-10-24] MEDS: Cefdinir 125 MG/5 ML Oral Suspension PO SCH (09:25)
[2018-10-24] MEDS: Citrucel 500 MG TAB PO SCH (09:25)
[2018-10-24] MEDS: Gabapentin 300 MG CAP PO SCH ×2 (09:26→14:13)
[2018-10-24] MEDS: Metoprolol Tartrate 50 MG TAB PO SCH (09:26)
[2018-10-24] MEDS: Polyethylene Glycol 3350 17 GM Packet PO SCH (09:27)
--- NOTE | 2018-10-24 13:35 | PRG ---
DATE OF SERVICE: 10/24/2018 SUBJECTIVE: Jeremiah Mcclure is doing well today. He has tolerated his diet. Small-bowel follow-through was normal yesterday. OBJECTIVE: VITAL SIGNS: Temperature 98.3 degrees, pulse 69, respirations 18, blood pressure 124/69. LUNGS: Clear to auscultation. CARDIAC: Regular rate and rhythm without murmur or gallop. ABDOMEN: Soft, nontender, multiple bowel movements. Incision from previous hospitalization well healed. No hernias. EXTREMITIES: Unremarkable. LABORATORY DATA: None today. ASSESSMENT AND PLAN: Doing well today. Plan to transfer to the longterm and keep him on MiraLAX twice a day, fiber twice a day, and we would recommend he be up in a chair several times a day and increase his activity to minimize his constipation. His main problem this hospitalization was constipation and not obstruction. Job ID: [id number]
[2018-10-24 16:08] VITALS: BP 125/64; TEMP 98.1
--- NOTE | 2018-10-26 08:59 | DIS ---
DATE OF ADMISSION: 10/23/2018 DATE OF DISCHARGE: 10/24/2018 DISCHARGE DIAGNOSES: 1. Constipation. 2. Stroke, immobility, right hemiparesis, aphasia. 3. Chronic obstructive pulmonary disease. 4. Diabetes mellitus, type 2. 5. Dyslipidemia. 6. Hypertension. 7. Degenerative disk disease. 8. History of pneumonia. 9. History of schizophrenia. 10. Poor mobility. PAST SURGICAL HISTORY: April 2018, laparotomy adhesiolysis for a bowel obstruction, past operation of lower abdomen of uncertain type, but there were multiple adhesions from prior surgery. Family could not give a history. HISTORY: A 68-year-old male, seen in the emergency room, evaluated, felt to have colon obstruction because of abdominal pain and vomiting. CAT scan suggested small bowel distention without transition point and significant constipation. The patient was admitted with an NG tube placed. It put out very little overnight. He underwent small-bowel follow-through that had rapid transit to the colon. Multiple bowel movements. He was then discharged home to resume his previous medications, but in addition take fiber twice a day and MiraLAX twice a day. His mobility should be increased. FOLLOWUP: Follow up with Dr. Shin recio. Follow up with primary care physician per appointment. Job ID: [id number]
== END 2018-10-24 18:10 | DRG 392 ==
LOC: ERS 20:22 → SURG A 10-23 01:48
PROVIDERS: ADMIT Specialist; ATTEND Specialist
DX: K59.00 Constipation, unspecified (principal); I69.351 Hemiplegia and hemiparesis following cerebral infarction affecting right dominant side; I48.0 Paroxysmal atrial fibrillation; E11.9 Type 2 diabetes mellitus without complications; E78.00 Pure hypercholesterolemia, unspecified; M19.90 Unspecified osteoarthritis, unspecified site; J44.9 Chronic obstructive pulmonary disease, unspecified; F20.9 Schizophrenia, unspecified; I10 Essential (primary) hypertension; I69.320 Aphasia following cerebral infarction; Z87.891 Personal history of nicotine dependence; Z79.84 Long term (current) use of oral hypoglycemic drugs; Z79.899 Other long term (current) drug therapy; Z79.82 Long term (current) use of aspirin; Z79.4 Long term (current) use of insulin; Z98.890 Other specified postprocedural states; Z87.01 Personal history of pneumonia (recurrent)
CPT/HCPCS: 36415; 36416; 74018; 74022; 74177; 74250; 80053; 83605; 83690; 85025; 93005; 96360; 96361; C9113; J1650; J1815; J1885; J2405; J3480; Q9963; Q9966

== ENCOUNTER 2020-07-20 03:00 | Inpatient (IN) | payer MEDICARE, MEDICAID ==
[2020-07-20] MEDS ORDERED: methylPREDNISolone Sod Succ/PF 125 MG/2 ML VIAL ONE (03:15)
[2020-07-20 04:29] LABS: Band 32 % (5-11); Hemoglobin 12.3 g/dL (14.0-18.0); Lymphocytes 26 % (21-51); MDiff Complete? YES; Mean Corpuscular HGB CONC 31.6 g/dL (32.0-36.0); Mean Corpuscular Hemoglobin 29.3 pg (27.0-31.0); Mean Corpuscular Volume 92.8 fL (78.0-98.0); Mean Platelet Volume 7.7 fL (7.4-10.4); Monocytes 3 % (0-10); Neutrophil 39 % (42-75); Platelet Count 183 thou/uL (130-400); Platelet Morphology Comment Appears Adequate; RBC Distribution Width 13.9 % (11.5-14.5); Red Blood Cell (RBC) Count 4.21 mill/uL (4.70-6.10)
[2020-07-20 04:38] LABS: ALT (SGPT) 79 U/L (8-55); AST (SGOT) 107 U/L (5-34); Albumin 3.1 g/dL (3.4-4.8); Alkaline Phosphatase 56 U/L (40-110); Anion Gap 19 mmol/L (10-20); BUN (Urea Nitrogen) 57 mg/dL (8.4-25.7); Calc. Creatinine Clearance 0 mL/min (70-130); Calcium 8.8 mg/dL (7.8-10.44); Carbon Dioxide 21 mmol/L (23-31); Chloride 114 mmol/L (98-107); Estimated GFR-MDRD 24; Globulin 4.8 g/dL (2.4-3.5); Glucose 341 mg/dL (83-110); Protein, Total 7.9 g/dL (5.8-8.1); Sodium 150 mmol/L (136-145)
[2020-07-20 04:57] LABS: CKMB 1.3 ng/mL (0-6.6)
[2020-07-20] MEDS ORDERED: RENAL FS ONE (05:22)
[2020-07-20] MEDS ORDERED: Acetaminophen 325 MG Suppository PR PRN (05:26)
[2020-07-20] MEDS ORDERED: Norepinephrine 8 MG/0.9% NS 250 ML IVPB SCH (05:30)
[2020-07-20] MEDS ORDERED: Dextrose 5% in Water 1,000 ML IV PRN (05:31)
[2020-07-20] MEDS ORDERED: Dextrose 50% Abboject 50 ML SYRINGE SLOW IVP PRN (05:31)
[2020-07-20] MEDS ORDERED: Acetaminophen 650 MG Suppository ONE (05:50)
--- NOTE | 2020-07-20 06:10 | PDOC.BPN ---
- Brief Progress Note [id number] HP dictated
[2020-07-20 07:29] VITALS: BMI 25.0
[2020-07-20 07:40] LABS: Lactic Acid 2.5 mmol/L (0.5-2.2)
--- NOTE | 2020-07-20 08:13 | HP ---
CHIEF COMPLAINT: Altered mental status. HISTORY OF PRESENT ILLNESS: Mr. Mcclure is a 70-year-old male with past medical history of hyperlipidemia, atrial fibrillation, hypertension, COPD, diabetes mellitus, osteoarthritis, among others, was brought to the emergency room after he was found unresponsive at the nursing facility. The patient was found to be hypoxic with low oxygen saturation. The patient was placed on a non-rebreather, oxygen saturation remained in the 80s. The patient is a DNR. The patient also was found to be hypotensive. The patient was tested positive for COVID-19 recently. In the emergency room, the patient was hypoxic, on lab work, the patient appears dehydrated with a sodium of 150 in acute renal failure with a BUN of 57, creatinine of 3.0, hyperglycemic with a glucose of 341. Lactic acid elevated at 2.3. WBC count is low at 3 with 32% neutrophils. Septic workup done in the ED. The patient was given empirically IV antibiotics. The patient also was given IV Solu-Medrol. Central venous catheter was inserted and the patient was started on Levophed. The patient is being admitted to the critical care unit for further management. PAST MEDICAL HISTORY: As mentioned above in the history of present illness. PAST SURGICAL HISTORY: Abdominal surgery in August 2019. PAST PSYCHIATRIC HISTORY: Schizophrenia. CURRENT MEDICATIONS: See home medication reconciliation form for updated medications. ALLERGIES: ALLERGIC TO KENALOG, LISINOPRIL, METFORMIN, TRIAMCINOLONE. REVIEW OF SYSTEMS: Unable to obtain due to patient's underlying medical condition. PHYSICAL EXAMINATION: GENERAL: The patient does not follow verbal commands. VITAL SIGNS: Blood pressure is 88/66, heart rate is , respiratory rate is 39, oxygen saturation is 90% on high-flow oxygen. HEAD AND NECK: Normocephalic. NECK: Supple. CHEST: Coarse bilateral breath sounds. HEART: Heart is irregular, tachycardic. ABDOMEN: Soft, distended. Bowel sounds present. NEUROLOGIC: Not responding, unable to assess. No clubbing, cyanosis. LABORATORY DATA: As mentioned above in the history of present illness. ASSESSMENT AND PLAN: 1. Acute hypoxic respiratory failure. 2. Septic shock. 3. COVID-19 pneumonia. 4. Elevated troponin. 5. Lactic acidosis. 6. Hypernatremia. 7. Acute renal failure. PLAN: 1. Admit to critical care unit. 2. Septic workup including cultures done in the ED. 3. The patient was given IV antibiotics in the emergency room, reassess in a.m., consider Infectious Disease consultation for further management. 4. Oxygen to keep saturation more than 92%. 5. Vasopressor, patient started on Levophed. 6. Cautiously start the patient on IV fluids. Given his COVID history, reassess in a.m. 7. Monitor kidney function and urine output. 8. Continue to trend troponin. 9. The patient is DNR. The patient has paperwork as per ER physician for DNR. 10. Reconcile home medications. 11. DVT prophylaxis as appropriate. 12. Expected length of stay, 2 midnights or more. 13. The patient's condition is critical. 14. Poor prognosis. Job ID: [id number]
--- NOTE | 2020-07-20 08:20 | RAD ---
EXAM: XR Chest 1 View Portable PROVIDED CLINICAL HISTORY: Unresponsive COMPARISON: 06/22/2018 FINDINGS: Cardiac and mediastinal silhouette is unchanged in appearance. Calcified mediastinal lymph nodes and calcified granulomata are seen. There is patchy bilateral interstitial and airspace disease, predominating at the mid and lower lung zones left greater than right. No pleural fluid or pneumothor ax apparent. IMPRESSION: Bilateral parenchymal opacities that may reflect pneumonia such as Covid pneumonia. Follow-up is sonia mmended.
[2020-07-20 08:21] LABS: Troponin I 1.186 ng/mL (< 0.028)
--- NOTE | 2020-07-20 08:22 | RAD ---
EXAM: XR Chest 1 View Portable PROVIDED CLINICAL HISTORY: Unresponsive COMPARISON: 07/20/2020 3:04 AM FINDINGS: A central venous catheter overlies the left lung apex and left neck, not further localized. Additiona l significant interval change with respect to prior is not apparent. IMPRESSION: As above.
[2020-07-20] MEDS ORDERED: Famotidine/PF 20 mg/2ml Vial SLOW IVP SCH (09:00)
[2020-07-20] MEDS: Heparin 5,000 UNITS/ML VIAL SC SCH ×2 (09:03→21:06)
[2020-07-20] MEDS: Sodium Chloride 0.45% 1,000 ML IV SCH ×2 (09:03→18:04)
[2020-07-20] MEDS: Dexamethasone 6 MG in Sodium Chloride 0.9% 50 ML IVPB SCH (09:09)
[2020-07-20] MEDS: HumaLOG 300 UNITS/3 ML VIAL SC PRN ×4 (09:30→21:33)
--- NOTE | 2020-07-20 09:50 | CON ---
DATE OF CONSULTATION: 07/20/2020 TIME SPENT: 45 minutes of critical care time. REASON FOR CONSULTATION: COVID-19 pneumonia. HISTORY OF PRESENT ILLNESS: The patient is a 70-year-old male, who resides in a care home. He was sent to this facility with progressive hypoxemia, apparently was diagnosed with COVID by positive test yesterday. He basically cannot verbalize and we cannot get any history from him. What I have is obtained from reviewing the ER notes and reviewing the hospitalist note in the chart. SUBJECTIVE: The patient apparently has standing at a hospital DNR, but I am not sure if that has been confirmed to continue as an inpatient. PAST MEDICAL HISTORY: 1. Hypertension. 2. Chronic obstructive pulmonary disease. 3. Diabetes mellitus. 4. Chronic atrial fibrillation. 5. Osteoarthritis. PAST SURGICAL HISTORY: He has had an abdominal surgery in 2019. PSYCHIATRIC HISTORY: Noted for schizophrenia. ALLERGIES: KENALOG, LISINOPRIL, METFORMIN, AND TRIAMCINOLONE. CURRENT MEDICATIONS: Reviewed. See home medication section in chart. REVIEW OF SYSTEMS: Cannot be obtained because the patient cannot communicate. PHYSICAL EXAMINATION: VITAL SIGNS: Temperature 101.6, pulse 149, blood pressure 86/63, O2 saturation 93%, and respiratory rate 33. GENERAL: He is a disheveled-appearing male, who has high-flow oxygen in place at 95% FiO2. HEENT: Pupils are reactive. Oropharynx dry. NECK: No adenopathy or JVD. LUNGS: Coarse breath sounds with crackles bilaterally. CARDIOVASCULAR: S1 and S2. Tachycardic. ABDOMEN: Soft and nontender. He has a low midline old-healed surgical scar. EXTREMITIES: No clubbing, cyanosis, or edema. LABORATORY DATA: Sodium 150, potassium 4, chloride 114, CO2 of 21, BUN 57, creatinine 3.1, and glucose 341. Lactate 2.5. Troponin 1.186. White blood cell count 3, hematocrit 39.1, and platelet count 183 with 39% neutrophils, 32% bands. Chest x-ray shows some subtle densities in the left base. ASSESSMENT: 1. COVID-19 infection with sepsis. 2. Acute hypoxic respiratory failure. 3. Hypernatremia, likely indicative of, the patient is dry. 4. Hypotension related to hypovolemia. RECOMMENDATIONS: 1. Continue steroids, anticoagulation, supportive care with oxygen. 2. Hydrate with half-normal saline. 3. Need to confirm that a hospital DNR is to continue. Job ID: [id number]
[2020-07-20] MEDS: Norepinephrine 8 MG in Dextrose 5% in Water 242 ML IVPB PRN ×3 (10:19→18:04)
[2020-07-20] MEDS ORDERED: Acetaminophen 650 MG Suppository PR PRN (12:30)
[2020-07-20 13:54] LABS: SARS-CoV-2 MS2 Positive; SARS-CoV-2 N Gene Positive; SARS-CoV-2 S Gene Positive; SARS-CoV-2 by NAA DETECTED (NotDetected); SARS-CoV-2 orf1ab Positive
[2020-07-20] MEDS ORDERED: HumaLOG 300 UNITS/3 ML VIAL SC PRN ×3 (15:30)
[2020-07-20] MEDS: Acetaminophen 650 MG Suppository PR PRN ×2 (16:28→22:43)
[2020-07-21] MEDS: HumaLOG 300 UNITS/3 ML VIAL SC PRN ×3 (00:39→07:42)
[2020-07-21] MEDS: Norepinephrine 8 MG in Dextrose 5% in Water 242 ML IVPB PRN ×2 (01:54→07:30)
[2020-07-21] MEDS: Sodium Chloride 0.45% 1,000 ML IV SCH ×2 (02:47→07:29)
[2020-07-21 05:06] LABS: ALT (SGPT) 74 U/L (8-55); AST (SGOT) 118 U/L (5-34); Albumin 2.9 g/dL (3.4-4.8); Alkaline Phosphatase 52 U/L (40-110); Anion Gap 23 mmol/L (10-20); BUN (Urea Nitrogen) 75 mg/dL (8.4-25.7); Bilirubin, Total 1.4 mg/dL (0.2-1.2); Calc. Creatinine Clearance 14 mL/min (70-130); Calcium 8.3 mg/dL (7.8-10.44); Carbon Dioxide 16 mmol/L (23-31); Chloride 109 mmol/L (98-107); Estimated GFR-MDRD 12; Globulin 4.3 g/dL (2.4-3.5); Glucose 250 mg/dL (83-110); Potassium 3.7 mmol/L (3.5-5.1); Protein, Total 7.2 g/dL (5.8-8.1); Sodium 144 mmol/L (136-145)
[2020-07-21] MEDS: Dexamethasone 6 MG in Sodium Chloride 0.9% 50 ML IVPB SCH (06:32)
--- NOTE | 2020-07-21 08:18 | PRG ---
DATE OF SERVICE: 07/21/2020 SUBJECTIVE: The patient remains in the ICU with COVID-19 pneumonia. Today, I find him fairly comatose, but I am not quite sure what his baseline is neurologically. OBJECTIVE: VITAL SIGNS: Temperature 99.9, pulse 150, blood pressure 100/68, O2 saturation 96%. HEENT: He is wearing high-flow nasal cannula at 95%. NECK: No JVD. LUNGS: Coarse rhonchi. CARDIOVASCULAR: S1, S2. Tachycardic, suspicious for atrial flutter. ABDOMEN: Soft. EXTREMITIES: No edema. LABORATORY DATA: Sodium 144, potassium 3.7, chloride 109, CO2 of 16, BUN 75, creatinine 5.8, glucose 250. ASSESSMENT: 1. COVID-19 pneumonia. 2. Acute respiratory failure requiring mechanical ventilation. 3. DNR. 4. Tachycardia, suspicious for atrial flutter. RECOMMENDATIONS: I would recommend converting this patient to hospice care as I see no reasonable hope for survival given advancing respiratory failure and kidney issues and refractory hypotension. Job ID: [id number]
[2020-07-21 13:05] VITALS: TEMP 100
--- NOTE | 2020-07-21 23:57 | DIS ---
DATE OF ADMISSION: 07/20/2020 DATE OF DISCHARGE: 07/21/2020 DISCHARGE DIAGNOSES: 1. Acute metabolic encephalopathy. 2. Acute respiratory failure secondary to hypoxia. 3. Septic shock. 4. COVID pneumonia. 5. Elevated troponin. 6. Lactic acidosis. HOSPITAL COURSE: The patient is a 70-year-old male with history of atrial fibrillation, hyperlipidemia, hypertension, COPD, who initially presented to the hospital for change in mental status from a nursing facility. The patient at this time was a DNR. He was found to be hypotensive. He was tested positive for COVID recently. The patient continued to worsen through the hospital stay. The family decided to make the patient hospice, and at this time, he was transitioned to hospice care. The patient was discharged to hospice. The patient was seen by Pulmonary, who also recommended admitting the patient to hospice care given his worsening respiratory status and refractory hypertension. Job ID: [id number]
--- NOTE | 2020-07-22 16:17 | EKG ---
Test Reason : Blood Pressure : / mmHG Vent. Rate : 148 BPM Atrial Rate : 148 BPM P-R Int : 152 ms QRS Dur : 096 ms QT Int : 248 ms P-R-T Axes : 022 032 227 degrees QTc Int : 389 ms Sinus tachycardia Abnormal ECG Confirmed by CLARICE JARA M.D. ([id number]), purchasing expeditor MAIKEL SAUNDERS ([id number] on 07/22/2020 4:17:42 PM Referred By: Confirmed By:CLARICE JARA M.D.
== END 2020-07-21 13:12 | disposition hospice, inpatient (51) | DRG 871 ==
LOC: ERS 03:00 → CCU 06:33
PROVIDERS: ADMIT Internal Medicine; ATTEND Internal Medicine
PROC: 5A0945A Assistance with Respiratory Ventilation, 24-96 Consecutive Hours, High Flow/Velocity Cannula (ICD-10-PCS; principal; 2020-07-20)
DX: A41.89 Other specified sepsis (principal); U07.1 COVID-19; J96.01 Acute respiratory failure with hypoxia; R65.21 Severe sepsis with septic shock; J12.89 Other viral pneumonia; G93.41 Metabolic encephalopathy; N17.9 Acute kidney failure, unspecified; E87.0 Hyperosmolality and hypernatremia; E87.2 Acidosis; I48.20 Chronic atrial fibrillation, unspecified; Z51.5 Encounter for palliative care; Z66 Do not resuscitate; E11.9 Type 2 diabetes mellitus without complications; E86.0 Dehydration; E86.1 Hypovolemia; R77.8 Other specified abnormalities of plasma proteins; E78.00 Pure hypercholesterolemia, unspecified; I10 Essential (primary) hypertension; I48.0 Paroxysmal atrial fibrillation; M19.90 Unspecified osteoarthritis, unspecified site; F20.9 Schizophrenia, unspecified; J44.9 Chronic obstructive pulmonary disease, unspecified; Z86.73 Personal history of transient ischemic attack (TIA), and cerebral infarction without residual deficits; Z88.8 Allergy status to other drugs, medicaments and biological substances
CPT/HCPCS: 36415; 36416; 36556; 71045; 80053; 82553; 83605; 83880; 84484; 85025; 87040; 87635; 93005; 94760; 96365; 96375; J1100; J1644; J2930; J7070; S0028; U0003

== ENCOUNTER 2020-07-21 13:26 | Inpatient (IN) | payer OTHER ==
[2020-07-21] MEDS ORDERED: Morphine 4 MG/ML VIAL SLOW IVP PRN (13:32)
[2020-07-21 13:35] VITALS: BMI 26.9
[2020-07-21] MEDS ORDERED: Lorazepam 2 MG/ML VIAL SLOW IVP PRN (13:45)
[2020-07-21] MEDS ORDERED: chlorproMAZINE HCl 25 MG in Sodium Chloride 0.9% 50 ML IVPB PRN (13:45)
[2020-07-21] MEDS ORDERED: Haloperidol Lactate 5 MG/ML VIAL SLOW IVP PRN (13:45)
[2020-07-21] MEDS ORDERED: Ondansetron PF 4 MG/2 ML Vial IVP PRN (13:45)
== END 2020-07-21 14:01 | disposition expired | DRG 951 ==
LOC: CCU 13:26
PROVIDERS: ADMIT Family Medicine; ATTEND Family Medicine
DX: Z51.5 Encounter for palliative care (principal); G93.41 Metabolic encephalopathy; J96.01 Acute respiratory failure with hypoxia; R65.21 Severe sepsis with septic shock; U07.1 COVID-19; J12.89 Other viral pneumonia; A41.89 Other specified sepsis; E87.2 Acidosis; J44.0 Chronic obstructive pulmonary disease with (acute) lower respiratory infection; N17.9 Acute kidney failure, unspecified; E87.0 Hyperosmolality and hypernatremia; R77.8 Other specified abnormalities of plasma proteins; Z66 Do not resuscitate; I10 Essential (primary) hypertension; E78.5 Hyperlipidemia, unspecified; I48.91 Unspecified atrial fibrillation; F20.9 Schizophrenia, unspecified; Z79.899 Other long term (current) drug therapy; M19.90 Unspecified osteoarthritis, unspecified site; E11.9 Type 2 diabetes mellitus without complications; E86.0 Dehydration
CPT/HCPCS: J2270